=== PATIENT | female | born 1955 | race Caucasian/White ===

== ENCOUNTER 2017-04-22 22:37 | Emergency (ER) | payer BC ==
[2017-04-22 22:45] VITALS: BP 146/69
[2017-04-22] MEDS ORDERED: methylPREDNISolone Sodium Succinate 125 MG/2 ML SDV IVPUSH ONE (22:58)
[2017-04-22] MEDS ORDERED: Famotidine 20 MG/2 ML SDV IVPUSH ONE (22:58)
[2017-04-22] MEDS ORDERED: hydrOXYzine Pamoate 25 MG Cap PO ONE (22:59)
[2017-04-22] MEDS ORDERED: Sodium Chloride 0.9% 10 ML Syringe FLUSH PRN (22:59)
[2017-04-22] MEDS ORDERED: Sodium Chloride 0.9% 2.5 ML Syringe FLUSH PRN (22:59)
[2017-04-22] MEDS ORDERED: Sodium Chloride 0.9% 500 ML IV SCH (23:00)
--- NOTE | 2017-04-22 23:00 | EDM.PDOC ---
ED HPI GENERAL MEDICAL PROBLEM - General Chief Complaint: Allergic Reaction Stated Complaint: POSSIBLE HIVES Time Seen by Provider: 04/22/17 22:53 - History of Present Illness INITIAL COMMENTS - FREE TEXT/NARRATIVE: HISTORY AND PHYSICAL: History of present illness: Patient is a 61-year-old female with a history of hypertension hypercholesterolemia who presents with onset of upper lip swelling and hives to her upper extremities and back that started at 7:30 PM. The patient is on fosinopril/hydrochlorothiazide and has been for many years in a combo drug and has never had problems with it. Patient denies any new foods and ate macaroni for dinner which is not new or different. The patient doesn't feel like her tongue is swollen she is having no trouble swallowing or breathing and has no chest pain. Patient took Benadryl prior to coming here. Review of systems: As per history of present illness and below otherwise all systems reviewed and negative. Past medical history: As per history of present illness and as reviewed below otherwise noncontributory. Surgical history: As per history of present illness and as reviewed below otherwise noncontributory. Social history: No reported history of drug or alcohol abuse. Family history: As per history of present illness and as reviewed below otherwise noncontributory. Physical exam: Gen.: Well-developed well-nourished female who is speaking clearly and easily in the ED and has a visibly swollen upper lip. She is handling her secretions and breathing easily in the ED. Vital signs of the note by me including the slight tachycardia. HEENT: Atraumatic, normocephalic, pupils reactive, negative for conjunctival pallor or scleral icterus, mucous membranes moist, throat clear, neck supple, nontender, trachea midline. The upper lip is grossly swollen but the tongue is normal as is her oropharynx. There is no other facial swelling appreciated. Lungs: Clear to auscultation, breath sounds equal bilaterally, chest nontender. There is no wheezing or stridor Heart: S1S2, regular rhythm and tachycardic rate of my evaluation Abdomen: Soft, nondistended, nontender. Negative for masses or hepatosplenomegaly. NABS Skin: There are urticarial wheals on the upper extremities mostly near the antecubital fossa as well as one on her left back but otherwise the stomach back and legs are spared. Turgor is normal. Genitourinary: Deferred. Rectal: Deferred. Extremities: Atraumatic, negative for cords or calf pain. Neurovascular unremarkable. Neuro: Awake, alert, oriented. Cranial nerves II through XII unremarkable. Cerebellum unremarkable. Motor and sensory unremarkable throughout. Exam nonfocal. Diagnostics: [] Therapeutics: IV fluids, patient took Benadryl prior to coming here, Vistaril Pepcid Solu- Medrol He is feeling improved and the urticaria has resolved almost completely. She still has a swollen lip but feels comfortable with discharge home. I've advised her to take Benadryl [id number] for the next 24 hours as well as the prednisone I'll prescribe her. I also advised her to call Dr. Stiven Rivera tomorrow and to have her fosinopril/hydrochlorothiazide changed and she should not be taking that again. Impression: Acute angioedema secondary to LEAH inhibitor use, urticaria Definitive disposition and diagnosis as appropriate pending reevaluation and review of above. - Related Data Allergies Allergy/AdvReac Type Severity Reaction Status Date / Time No Known Allergies Allergy Verified 04/22/17 22:45 Home Meds: Home Meds Aspirin 1 tab PO DAILY 01/02/15 [History] Escitalopram [Lexapro] 1 tab PO DAILY 01/02/15 [History] Metformin/Pioglitazone [Actoplus Met 15-500 MG] 1 tab PO BID 01/02/15 [History] Pantoprazole [Protonix] 1 tab PO DAILY 01/02/15 [History] Budesonide/Formoterol Fumarate [Symbicort 80-4.5 Mcg Inhaler] 1 puff IH BID [History] Fish Oil/[place]-3 Fatty Acids [Fish Oil 1,000 MG] 1 tab PO DAILY 04/22/17 [ History] Lisinopril/Hydrochlorothiazide [Lisinopril-Hctz 10-12.5 mg Tab] 1 tab PO DAILY 04/22/17 [History] Magnesium 30 mg PO DAILY 04/22/17 [History] atorvaSTATin [Lipitor] 20 mg PO BEDTIME 04/22/17 [History] Past Medical History - Past Health History Medical/Surgical History: Denies Medical/Surgical History HEENT History: Reports: Impaired Vision Other HEENT History: wears glasses Cardiovascular History: Reports: High Cholesterol, Hypertension Respiratory History: Reports: COPD, Sleep Apnea Gastrointestinal History: Reports: None ROCK [employer] History: Reports: , Spontaneous - Infectious Disease History Infectious Disease History: Reports: Chicken Pox - Past Surgical History HEENT Surgical History: Reports: None Cardiovascular Surgical History: Reports: None Respiratory Surgical History: Reports: None GI Surgical History: Reports: Cholecystectomy Social & Family History - Family History Family Medical History: Noncontributory - Tobacco Use Smoking Status *Q: Never Smoker Second Hand Smoke Exposure: No - Caffeine Use Caffeine Use: Reports: Coffee - Recreational Drug Use Recreational Drug Use: No ED ROS ALLERGIC REACTION - Review of Systems Review Of Systems: ROS reveals no pertinent complaints other than HPI. ED EXAM GENERAL NO PERIP PULSE - Physical Exam Exam: See Below (See dictation) Course - Vital Signs Last Recorded V/S: Last Vital Signs Temp 36.4 C 04/22/17 22:41 Pulse 106 H 04/22/17 22:41 Resp 20 04/22/17 22:41 BP 146/69 H 04/22/17 22:41 Pulse Ox 95 04/22/17 22:41 - Orders/Labs/Meds Orders: Active Orders 24 hr Category Date Time Status Sodium Chloride 0.9% [Normal Saline] 500 ml Med 04/22/17 23:00 Active IV STAT Sodium Chloride 0.9% [Saline Flush] Med 04/22/17 22:59 Active 10 ml FLUSH ASDIRECTED PRN Sodium Chloride 0.9% [Saline Flush] Med 04/22/17 22:59 Active 2.5 ml FLUSH ASDIRECTED PRN Saline Lock Insert [OM.PC] Stat Oth 04/22/17 22:58 Ordered Medication Orders Sodium Chloride (Normal Saline) 500 mls @ 999 mls/hr IV STAT ESTEFANI Last Admin: 04/22/17 23:41 Dose: 999 mls/hr Sodium Chloride (Saline Flush) 10 ml FLUSH ASDIRECTED PRN PRN Reason: Keep Vein Open Sodium Chloride (Saline Flush) 2.5 ml FLUSH ASDIRECTED PRN PRN Reason: Keep Vein Open Meds: Medications Generic Name Dose Route Start Last Admin Trade Name Freq PRN Reason Stop Dose Admin Sodium Chloride 500 mls @ 999 mls/hr 04/22/17 23:00 04/22/17 23:41 Normal Saline IV 999 mls/hr STAT ESTEFANI Administration Sodium Chloride 10 ml 04/22/17 22:59 Saline Flush FLUSH ASDIRECTED PRN Keep Vein Open Sodium Chloride 2.5 ml 04/22/17 22:59 Saline Flush FLUSH ASDIRECTED PRN Keep Vein Open Discontinued Medications Generic Name Dose Route Start Last Admin Trade Name Artem PRN Reason Stop Dose Admin Famotidine 20 mg 04/22/17 22:58 04/22/17 23:22 Pepcid IVPUSH 04/22/17 22:59 20 mg ONETIME ONE Administration Hydroxyzine Pamoate 25 mg 04/22/17 22:59 04/22/17 23:32 Vistaril PO 04/22/17 23:00 25 mg ONETIME ONE Administration Methylprednisolone Sodium Succinate 125 mg 04/22/17 22:58 04/22/17 23:22 Solu-Medrol IVPUSH 04/22/17 22:59 125 mg ONETIME ONE Administration Departure - Departure Time of Disposition: 00:16 Disposition: Home, Self-Care 01 Condition: Good Clinical Impression: Urticaria Angioedema Qualifiers: Encounter type: initial encounter Qualified Code(s): T78.3XXA - Angioneurotic edema, initial encounter - Discharge Information Referrals: PCP,None [Primary Care Provider] - Additional Instructions: The following information is given to patients seen in the emergency department who are being discharged to home. This information is to outline your options for follow-up care. We provide all patients seen in our emergency department with a follow-up referral. The need for follow-up, as well as the timing and circumstances, are variable depending upon the specifics of your emergency department visit. If you don't have a primary care physician on staff, we will provide you with a referral. We always advise you to contact your personal physician following an emergency department visit to inform them of the circumstance of the visit and for follow-up with them and/or the need for any referrals to a consulting specialist. The emergency department will also refer you to a specialist when appropriate. This referral assures that you have the opportunity for followup care with a specialist. All of these measure are taken in an effort to provide you with optimal care, which includes your followup. Under all circumstances we always encourage you to contact your private physician who remains a resource for coordinating your care. When calling for followup care, please make the office aware that this follow-up is from your recent emergency room visit. If for any reason you are refused follow-up, please contact the [facility] emergency department at and ask to speak to the emergency department charge nurse. [address] [place], [place] [id number] [facility]- [facility] Medicine and Family [facility] [address] [place] [phone] Rivera tomorrow and have him change her fosinopril/ hydrochlorothiazide to a different drug. Please do not take that medication again. Please take [id number] Benadryl if the milligrams every 6 hours for the next 24 hours continuously and then as needed afterwards. Take prednisone as directed and monitor your blood sugars as the prednisone may increase them temporarily. These expect the lip swelling to subside gradually. Return to ER as needed and as discussed - My Orders Last 24 Hours: My Active Orders 04/22/17 22:58 Saline Lock Insert [OM.PC] Stat 04/22/17 22:59 Sodium Chloride 0.9% [Saline Flush] 10 ml FLUSH ASDIRECTED PRN Sodium Chloride 0.9% [Saline Flush] 2.5 ml FLUSH ASDIRECTED PRN 04/22/17 23:00 Sodium Chloride 0.9% [Normal Saline] 500 ml IV STAT - Assessment/Plan Last 24 Hours: My Active Orders 04/22/17 22:58 Saline Lock Insert [OM.PC] Stat 04/22/17 22:59 Sodium Chloride 0.9% [Saline Flush] 10 ml FLUSH ASDIRECTED PRN Sodium Chloride 0.9% [Saline Flush] 2.5 ml FLUSH ASDIRECTED PRN 04/22/17 23:00 Sodium Chloride 0.9% [Normal Saline] 500 ml IV STAT
== END 2017-04-23 00:30 | disposition home or self-care (01) ==
LOC: MW.ED 22:37
DX: T78.3XXA Angioneurotic edema, initial encounter (principal); T44.5X5A Adverse effect of predominantly beta-adrenoreceptor agonists, initial encounter; E78.00 Pure hypercholesterolemia, unspecified; I10 Essential (primary) hypertension; Z79.84 Long term (current) use of oral hypoglycemic drugs; Z79.899 Other long term (current) drug therapy; Z79.82 Long term (current) use of aspirin
CPT/HCPCS: 96361; 96374; 96375; 99283; A9270; J2930; J7040; 99284

== ENCOUNTER 2017-04-24 19:58 | Emergency (ER) | payer BC ==
[2017-04-24] MEDS ORDERED: methylPREDNISolone Sodium Succinate 125 MG/2 ML SDV IM ONE (20:19)
[2017-04-24] MEDS ORDERED: hydrOXYzine Pamoate 25 MG Cap PO ONE (20:19)
--- NOTE | 2017-04-24 20:24 | EDM.PDOC ---
ED HPI GENERAL MEDICAL PROBLEM - General Chief Complaint: Allergic Reaction Stated Complaint: HIVES Time Seen by Provider: 04/24/17 20:15 - History of Present Illness INITIAL COMMENTS - FREE TEXT/NARRATIVE: HISTORY AND PHYSICAL: History of present illness: The patient is a 61-year-old female with a history of hypertension and hypercholesterolemia who follows with Dr. Adriana iRvera and was seen here 2 days ago for angioedema secondary to her LEAH inhibitor use which included swelling of her upper lip and some patchy urticaria on her upper extremities and left back. Patient was treated with IV steroids Pepcid Vistaril, she had taken Benadryl prior to coming here. Patient says that her lip swelling was completely resolved as of yesterday evening is having no hives or rash. Today about 12 noon she started feeling itchy and she broke out in a rash several hours ago and took Benadryl 2-1/2 hours ago. She says she was doing really well from the hives standpoint and this is a new recurrence. She doesn't know of anything that could've triggered it that was new or different. She has not been taking her blood pressure medicine, LEAH inhibitor, and has appointment tomorrow with Dr. Stiven Rivera to replace that drug and for reevaluation of her symptoms. She has no shortness of breath no lip or tongue swelling no chest pain no nausea no vomiting and no other systemic complaints Review of systems: As per history of present illness and below otherwise all systems reviewed and negative. Past medical history: As per history of present illness and as reviewed below otherwise noncontributory. Surgical history: As per history of present illness and as reviewed below otherwise noncontributory. Social history: No reported history of drug or alcohol abuse. Family history: As per history of present illness and as reviewed below otherwise noncontributory. Physical exam: Gen.: Well-developed overweight female who is nontoxic and speaking clearly and easily in the ED. Vital signs have been reviewed by me. HEENT: Atraumatic, normocephalic, pupils reactive, negative for conjunctival pallor or scleral icterus, mucous membranes moist, throat clear, neck supple, nontender, trachea midline. There is no lip tongue or oropharyngeal no facial swelling Lungs: Clear to auscultation, breath sounds equal bilaterally, chest nontender. No wheezing or stridor Heart: S1S2, regular rate and rhythm no overt murmurs Abdomen: Soft, nondistended, nontender. NABS Pelvis: Deferred Genitourinary: Deferred. Rectal: Deferred. Extremities: Atraumatic, negative for cords or calf pain. Neurovascular unremarkable. Neuro: Awake, alert, oriented. Cranial nerves II through XII unremarkable. Cerebellum unremarkable. Motor and sensory unremarkable throughout. Exam nonfocal. Skin: There is diffuse urticaria seen on the trunk extremities but spares the face. Patient is itching when I'm in the room. Turgor is normal Diagnostics: [] Therapeutics: Solu-Medrol IM Vistaril by mouth I advised the patient that if the symptoms persist she may need to be seen by dermatology start first with her appointment tomorrow with Dr. Rivera in the clinic. I've advised her to stop taking Benadryl and to start Vistaril which I prescribed. I advised her to continue the prednisone she has. Impression: Recurrent urticaria with history of angioedema and urticaria Definitive disposition and diagnosis as appropriate pending reevaluation and review of above. - Related Data Allergies Allergy/AdvReac Type Severity Reaction Status Date / Time No Known Allergies Allergy Verified 04/24/17 20:13 Home Meds: Home Meds Aspirin 1 tab PO DAILY 01/02/15 [History] Escitalopram [Lexapro] 1 tab PO DAILY 01/02/15 [History] Metformin/Pioglitazone [Actoplus Met 15-500 MG] 1 tab PO BID 01/02/15 [History] Pantoprazole [Protonix] 1 tab PO DAILY 01/02/15 [History] Budesonide/Formoterol Fumarate [Symbicort 80-4.5 Mcg Inhaler] 1 puff IH BID [History] Fish Oil/[place]-3 Fatty Acids [Fish Oil 1,000 MG] 1 tab PO DAILY 04/22/17 [ History] Magnesium 30 mg PO DAILY 04/22/17 [History] atorvaSTATin [Lipitor] 20 mg PO BEDTIME 04/22/17 [History] Past Medical History - Past Health History Medical/Surgical History: Denies Medical/Surgical History HEENT History: Reports: Impaired Vision Other HEENT History: wears glasses Cardiovascular History: Reports: High Cholesterol, Hypertension Respiratory History: Reports: COPD, Sleep Apnea Gastrointestinal History: Reports: None [employer] History: Reports: , Spontaneous Psychiatric History: Reports: Anxiety - Infectious Disease History Infectious Disease History: Reports: Chicken Pox - Past Surgical History HEENT Surgical History: Reports: None Cardiovascular Surgical History: Reports: None Respiratory Surgical History: Reports: None GI Surgical History: Reports: Cholecystectomy Social & Family History - Family History Family Medical History: Noncontributory - Tobacco Use Smoking Status *Q: Never Smoker Second Hand Smoke Exposure: No - Caffeine Use Caffeine Use: Reports: Coffee, Soda - Recreational Drug Use Recreational Drug Use: No ED ROS ALLERGIC REACTION - Review of Systems Review Of Systems: ROS reveals no pertinent complaints other than HPI. ED EXAM GENERAL NO PERIP PULSE - Physical Exam Exam: See Below (See dictation) Course - Vital Signs Last Recorded V/S: Last Vital Signs Temp 36.1 C 04/24/17 20:09 Pulse 90 04/24/17 20:09 Resp 20 04/24/17 20:09 BP 147/67 H 04/24/17 20:09 Pulse Ox 96 04/24/17 20:09 - Orders/Labs/Meds Orders: Active Orders 24 hr Category Date Time Status hydrOXYzine Pamoate [Vistaril] Med 04/24/17 20:19 Once 25 mg PO ONETIME ONE methylPREDNISolone Sod Succ [Solu-MEDROL] Med 04/24/17 20:19 Once 125 mg IM ONETIME ONE Departure - Departure Time of Disposition: 20:23 Disposition: Home, Self-Care 01 Condition: Good Clinical Impression: Recurrent urticaria - Discharge Information Referrals: Stiven Rivera MD [Primary Care Provider] - Additional Instructions: The following information is given to patients seen in the emergency department who are being discharged to home. This information is to outline your options for follow-up care. We provide all patients seen in our emergency department with a follow-up referral. The need for follow-up, as well as the timing and circumstances, are variable depending upon the specifics of your emergency department visit. If you don't have a primary care physician on staff, we will provide you with a referral. We always advise you to contact your personal physician following an emergency department visit to inform them of the circumstance of the visit and for follow-up with them and/or the need for any referrals to a consulting specialist. The emergency department will also refer you to a specialist when appropriate. This referral assures that you have the opportunity for followup care with a specialist. All of these measure are taken in an effort to provide you with optimal care, which includes your followup. Under all circumstances we always encourage you to contact your private physician who remains a resource for coordinating your care. When calling for followup care, please make the office aware that this follow-up is from your recent emergency room visit. If for any reason you are refused follow-up, please contact the [facility] emergency department at and ask to speak to the emergency department charge nurse. [address] [place] [address] Please stop taking the Benadryl and take the Vistaril you had been prescribed. Continue taking the prednisone with your next dose being tomorrow. The prednisone were prescribed 2 days ago while you're in the ER. Please keep your appointment tomorrow with Dr. Stiven Rivera and return to ER as needed and as discussed. - My Orders Last 24 Hours: My Active Orders 04/24/17 20:19 hydrOXYzine Pamoate [Vistaril] 25 mg PO ONETIME ONE methylPREDNISolone Sod Succ [Solu-MEDROL] 125 mg IM ONETIME ONE - Assessment/Plan Last 24 Hours: My Active Orders 04/24/17 20:19 hydrOXYzine Pamoate [Vistaril] 25 mg PO ONETIME ONE methylPREDNISolone Sod Succ [Solu-MEDROL] 125 mg IM ONETIME ONE
[2017-04-24 20:55] VITALS: BP 133/60
== END 2017-04-24 21:07 | disposition home or self-care (01) ==
LOC: MW.ED 19:58
DX: L50.8 Other urticaria (principal); I10 Essential (primary) hypertension; Z79.82 Long term (current) use of aspirin; Z79.84 Long term (current) use of oral hypoglycemic drugs; Z79.899 Other long term (current) drug therapy
CPT/HCPCS: 96372; 99283; A9270; J2930

== ENCOUNTER 2019-01-03 19:55 | Observation (INO) | payer BC ==
--- NOTE | 2019-01-03 20:08 | EDM.PDOC ---
ED HPI GENERAL MEDICAL PROBLEM - General Chief Complaint: Lower Extremity Injury/Pain Stated Complaint: PT HURT LT TOE Time Seen by Provider: 01/03/19 20:00 Source of Information: Reports: Patient History Limitations: Reports: No Limitations - History of Present Illness INITIAL COMMENTS - FREE TEXT/NARRATIVE: HISTORY AND PHYSICAL: History of present illness: Patient is a 63-year-old female who presents to the emergency room with complaints of redness and swelling left second toe since Saturday. She states she was walking without shoes and felt something sharp poke the bottom of her foot. She was evaluated in the walk-in clinic on 12/31/2018 and placed on a Medrol Dosepak and clindamycin 3 times daily. She states she has been taking the medications but not seeing any improvement. The area is now erythematous and has a blister to the medial and lateral aspects of the toe. Patient is a type II diabetic. Denies any history of neuropathy. Patient denies any fever, chills, headache, change in vision, syncope or near syncope. Denies any chest pain, back pain, shortness of breath or cough. Denies any abdominal pain, nausea, vomiting, diarrhea, constipation or dysuria. Has not noted any blood in urine or stool. Patient has been eating and drinking appropriately. Review of systems: As per history of present illness and below otherwise all systems reviewed and negative. Past medical history: As per history of present illness and as reviewed below otherwise noncontributory. Surgical history: As per history of present illness and as reviewed below otherwise noncontributory. Social history: See social history for further information Family history: As per history of present illness and as reviewed below otherwise noncontributory. Physical exam: General: Well-developed and well-nourished 63-year-old female. Alert and oriented. Nontoxic appearing and in no acute distress. HEENT: Atraumatic, normocephalic, pupils equal and reactive bilaterally, negative for conjunctival pallor or scleral icterus, mucous membranes moist, TMs normal bilaterally, throat clear, neck supple, nontender, trachea midline. No drooling or trismus noted. No meningeal signs. No hot potato voice noted. Lungs: Clear to auscultation, breath sounds equal bilaterally, chest nontender. Heart: S1S2, regular rate and rhythm without overt murmur Abdomen: Soft, nondistended, obese, nontender. Negative for masses or hepatosplenomegaly. Negative for costovertebral tenderness.. Skin: Erythema of the left second toe going into the upper third portion of the anterior foot. There is a blister to the medial and lateral aspect of the toe along with a small superficial blister noted to the anterior aspect of the third toe. Intact, warm, dry. No lesions or rashes noted. Extremities: Moves all extremities per self without difficulty or deficits, negative for cords or calf pain. Neurovascular unremarkable. Neuro: Awake, alert, oriented. Cranial nerves II through XII unremarkable. Cerebellum unremarkable. Motor and sensory unremarkable throughout. Exam nonfocal. Notes: Patient stated that the initial injury appeared to be a small puncture wound to the bottom of her foot. Was placed on the antibiotics and over the past 4 days she has progressively gotten more painful, erythematous and soft tissue swelling. Nursing staff did outline the cellulitis with a surgical marker. We discussed outpatient therapy versus inpatient therapy. Dr. Aguilar was consulted, he is agreeable to keeping her for observation. Requested vancomycin be started. Patient is aware and agreeable to plan of care. Diagnostics: CBC, CMP, x-ray, blood cultures Therapeutics: Vancomycin Impression: Cellulitis, left foot Diabetes, Type II Plan: Observation admission Definitive disposition and diagnosis as appropriate pending reevaluation and review of above. - Related Data Allergies Allergy/AdvReac Type Severity Reaction Status Date / Time No Known Allergies Allergy Verified 04/24/17 20:13 Home Meds: Home Meds Aspirin 1 tab PO DAILY 01/02/15 [History] Escitalopram [Lexapro] 1 tab PO DAILY 01/02/15 [History] Metformin/Pioglitazone [Actoplus Met 15-500 MG] 1 tab PO BID 01/02/15 [History] Pantoprazole [Protonix] 1 tab PO DAILY 01/02/15 [History] Budesonide/Formoterol Fumarate [Symbicort 80-4.5 Mcg Inhaler] 1 puff IH BID [History] Fish Oil/[place]-3 Fatty Acids [Fish Oil 1,000 MG] 1 tab PO DAILY 04/22/17 [ History] Magnesium 30 mg PO DAILY 04/22/17 [History] atorvaSTATin [Lipitor] 20 mg PO BEDTIME 04/22/17 [History] Clindamycin HCl 300 mg PO TID 01/03/19 [History] methylPREDNISolone [Medrol] 4 mg PO DAILY 01/03/19 [History] Past Medical History - Past Health History Medical/Surgical History: Denies Medical/Surgical History HEENT History: Reports: Impaired Vision Other HEENT History: wears glasses Cardiovascular History: Reports: High Cholesterol, Hypertension Respiratory History: Reports: COPD, Sleep Apnea Gastrointestinal History: Reports: None 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 ED EXAM, GENERAL - Physical Exam Exam: See Below (See dictation) Course - Vital Signs Last Recorded V/S: Last Vital Signs Temp 96.7 F 01/03/19 20:14 Pulse 79 01/03/19 20:14 Resp 18 01/03/19 20:14 BP 135/61 01/03/19 20:14 Pulse Ox 93 L 01/03/19 20:14 - Orders/Labs/Meds Orders: Active Orders 24 hr Category Date Time Status Admission Status [Patient Status] [ADT] Stat ADT 01/03/19 21:22 Ordered Foot Comp Min 3V Lt [CR] Stat Exams 01/03/19 20:26 Taken CULTURE BLOOD [BC] Stat Lab 01/03/19 21:22 Ordered CULTURE BLOOD [BC] Stat Lab 01/03/19 21:22 Ordered Vancomycin 1 gm Med 01/03/19 21:22 Ordered Sodium Chloride 0.9% [Normal Saline] 250 ml IV ONETIME Blood Culture x2 Reflex Set [OM.PC] Stat Oth 01/03/19 21:22 Ordered Medication Orders Vancomycin HCl 1 gm/ Sodium (Chloride) 250 mls @ 166 mls/hr IV ONETIME ONE Stop: 01/03/19 22:52 Labs: Laboratory Tests 01/03/19 01/03/19 Range/Units 20:34 20:34 WBC 12.27 H (4.0-11.0) K/uL RBC 4.13 L (4.30-5.90) M/uL Hgb 10.6 L (12.0-16.0) g/dL Hct 34.4 L (36.0-46.0) % MCV 83.3 (80.0-98.0) fL MCH 25.7 L (27.0-32.0) pg MCHC 30.8 L (31.0-37.0) g/dL RDW Std Deviation 46.5 (28.0-62.0) fl RDW Coeff of William 15 (11.0-15.0) % Plt Count 313 (150-400) K/uL MPV 9.50 (7.40-12.00) fL Neut % (Auto) 79.9 (48.0-80.0) % Lymph % (Auto) 12.9 L (16.0-40.0) % Coleman % (Auto) 5.5 (0.0-15.0) % Eos % (Auto) 1.5 (0.0-7.0) % Baso % (Auto) 0.2 (0.0-1.5) % Neut # (Auto) 9.8 H (1.4-5.7) K/uL Lymph # (Auto) 1.6 (0.6-2.4) K/uL Coleman # (Auto) 0.7 (0.0-0.8) K/uL Eos # (Auto) 0.2 (0.0-0.7) K/uL Baso # (Auto) 0.0 (0.0-0.1) K/uL Nucleated RBC % 0.0 /100WBC Nucleated RBCs # 0 K/uL Sodium 139 (136-145) mmol/L Potassium 4.3 (3.5-5.1) mmol/L Chloride 102 (98-107) mmol/L Carbon Dioxide 26.5 (21.0-32.0) mmol/L BUN 38 H (7.0-18.0) mg/dL Creatinine 1.7 H (0.6-1.0) mg/dL Est Cr Clr Drug Dosing 26.44 mL/min Estimated GFR (MDRD) 30.3 ml/min Glucose 204 H (74-106) mg/dL Calcium 9.2 (8.5-10.1) mg/dL Total Bilirubin 0.2 (0.2-1.0) mg/dL AST 19 (15-37) IU/L ALT 29 (14-63) IU/L Alkaline Phosphatase 92 (46-116) U/L Total Protein 7.2 (6.4-8.2) g/dL Albumin 3.3 L (3.4-5.0) g/dL Globulin 3.9 (2.6-4.0) g/dL Albumin/Globulin Ratio 0.9 (0.9-1.6) Meds: Medications Generic Name Dose Route Start Last Admin Trade Name Artem PRN Reason Stop Dose Admin Vancomycin HCl 1 gm/ Sodium 250 mls @ 166 mls/hr 01/03/19 21:22 Chloride IV 01/03/19 22:52 ONETIME ONE Departure - Departure Time of Disposition: 21:26 Disposition: Refer to Observation Clinical Impression: History of diabetes mellitus, type II Cellulitis Qualifiers: Site of cellulitis: extremity Site of cellulitis of extremity: lower extremity Laterality: left Qualified Code(s): L03.116 - Cellulitis of left lower limb - Discharge Information Referrals: Stiven Rivera MD [Primary Care Provider] - Forms: ED Department Discharge - My Orders Last 24 Hours: My Active Orders 01/03/19 20:26 Foot Comp Min 3V Lt [CR] Stat 01/03/19 21:22 Admission Status [Patient Status] [ADT] Stat CULTURE BLOOD [BC] Stat CULTURE BLOOD [BC] Stat Vancomycin 1 gm Sodium Chloride 0.9% [Normal Saline] 250 ml IV ONETIME Blood Culture x2 Reflex Set [OM.PC] Stat - Assessment/Plan Last 24 Hours: My Active Orders 01/03/19 20:26 Foot Comp Min 3V Lt [CR] Stat 01/03/19 21:22 Admission Status [Patient Status] [ADT] Stat CULTURE BLOOD [BC] Stat CULTURE BLOOD [BC] Stat Vancomycin 1 gm Sodium Chloride 0.9% [Normal Saline] 250 ml IV ONETIME Blood Culture x2 Reflex Set [OM.PC] Stat
[2019-01-03 21:07] LABS: CARBON DIOXIDE,CO2 26.5 mmol/L (21.0-32.0); POTASSIUM,K 4.3 mmol/L (3.5-5.1)
[2019-01-03] MEDS ORDERED: Vancomycin 1 GM SDV ONE (22:03)
[2019-01-03] MEDS ORDERED: Sodium Chloride 0.9% 250 ML ONE (22:04)
--- NOTE | 2019-01-03 22:12 | CR ---
INDICATION: Injury. Swelling. TECHNIQUE: Three views left foot. FINDINGS: Moderately prominent calcaneal spurring. Moderate degenerative arthritis left foot. Mild degenerative arthritis left ankle. Mild soft tissue swelling left foot dorsally. Small ossific density adjacent to the cuboid on 1 of the views is of indeterminate age but on the other view appears more chronic. Suggest clinical correlation for pain in this location. Small accessory navicular bone. Small lucencies involving the proximal phalanges of the left 2nd through 5th toes benign. Remainder negative. Dictated by Nolberto Balderrama MD @ Jan 03 2019 10:09PM Signed by Dr. Nolberto Balderrama @ Jan 03 2019 10:11PM
[2019-01-04 07:00] LABS: CARBON DIOXIDE,CO2 29.5 mmol/L (21.0-32.0); POTASSIUM,K 3.6 mmol/L (3.5-5.1)
--- NOTE | 2019-01-04 07:42 | PCM.HP ---
H&P History of Present Illness - General Date of Service: 01/04/19 Admit Problem/Dx: Admission Diagnosis/Problem Admission Diagnosis/Problem Cellulitis Source of Information: Patient History Limitations: Reports: No Limitations - History of Present Illness Initial Comments - Free Text/Narative: The patient is a 63-year-old lady who had presented to the emergency department primarily out of concern for infection of her left foot. This was a injury that she has sustained on her left second toe. The patient had presented to an urgent care center and she was placed on clindamycin and methylprednisolone. The patient says is getting worse. She has denied any fever or chills. The patient is also a type II diabetic. The patient also has denied any dizziness or lightheadedness. She's had no syncope. She also has denied any shortness of breath. The patient has been at her usual state of health. Onset of Symptoms: Reports: Gradual Duration of Symptoms: Reports: Day(s): Location: Reports: Lower Extremity, Left (Left forefoot) Quality: Reports: Ache, Stabbing Severity: Moderate Improves with: Reports: Medication Worsens with: Reports: Movement Context: Reports: Trauma (Stepped on something) Associated Symptoms: Reports: No Other Symptoms - Related Data Allergies/Adverse Reactions: Allergies Allergy/AdvReac Type Severity Reaction Status Date / Time No Known Allergies Allergy Verified 01/03/19 22:29 Home Medications: Home Meds Aspirin 1 tab PO DAILY 01/02/15 [History] Escitalopram [Lexapro] 1 tab PO DAILY 01/02/15 [History] Metformin/Pioglitazone [Actoplus Met 15-500 MG] 1 tab PO BID 01/02/15 [History] Pantoprazole [Protonix] 1 tab PO DAILY 01/02/15 [History] Budesonide/Formoterol Fumarate [Symbicort 80-4.5 Mcg Inhaler] 1 puff IH BID [History] Fish Oil/[place]-3 Fatty Acids [Fish Oil 1,000 MG] 1 tab PO DAILY 04/22/17 [ History] Magnesium 30 mg PO DAILY 04/22/17 [History] atorvaSTATin [Lipitor] 20 mg PO BEDTIME 04/22/17 [History] Clindamycin HCl 300 mg PO TID 01/03/19 [History] Triamterene/Hydrochlorothiazid [Triamterene-HCTZ 37.5-25 MG] 1 each PO DAILY [History] methylPREDNISolone [Medrol] 4 mg PO DAILY 01/03/19 [History] Past Medical History - Past Health History Medical/Surgical History: Denies Medical/Surgical History HEENT History: Reports: Impaired Vision Other HEENT History: wears glasses Cardiovascular History: Reports: High Cholesterol, Hypertension Respiratory History: Reports: COPD, Sleep Apnea Gastrointestinal History: Reports: None Genitourinary History: Reports: None 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: , 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 Musculoskeletal History: Reports: None Neurological History: Reports: None Psychiatric History: Reports: Anxiety Endocrine/Metabolic History: Reports: Diabetes, Type II, Obesity/BMI 30+ Hematologic History: Reports: None - Infectious Disease History Infectious Disease History: Reports: Chicken Pox, Mumps - Past Surgical History HEENT Surgical History: Reports: None Cardiovascular Surgical History: Reports: None Respiratory Surgical History: Reports: None GI Surgical History: Reports: Cholecystectomy Social & Family History - Family History Family Medical History: Noncontributory - Tobacco Use Smoking Status *Q: Never Smoker Second Hand Smoke Exposure: No - Caffeine Use Caffeine Use: Reports: Coffee - Recreational Drug Use Recreational Drug Use: No H&P Review of Systems - Review of Systems: Review Of Systems: See Below General: Reports: No Symptoms HEENT: Reports: No Symptoms Pulmonary: Reports: No Symptoms Cardiovascular: Reports: No Symptoms Gastrointestinal: Reports: No Symptoms Genitourinary: Reports: No Symptoms Musculoskeletal: Reports: No Symptoms Skin: Reports: Wound, Other (Infection and blister left second toe) Psychiatric: Reports: No Symptoms Neurological: Reports: No Symptoms Hematologic/Lymphatic: Reports: No Symptoms Immunologic: Reports: No Symptoms Exam - Exam Exam: See Below - Vital Signs Vital Signs: Last Vital Signs Temp 36.3 C 01/04/19 04:00 Pulse 75 01/04/19 04:00 Resp 18 01/04/19 04:00 BP 110/62 01/04/19 04:00 Pulse Ox 95 01/04/19 04:00 Weight: 142.201 kg - Exam Quality Assessment: No: Supplemental Oxygen General: Alert (Morbidly obese), Oriented, Cooperative HEENT: Conjunctiva Clear, EACs Clear, EOMI, Mucosa Moist & [place], Pupils Equal, PERRLA Neck: Supple, Trachea Midline, Other (Very thick neck) Lungs: Clear to Auscultation, Normal Respiratory Effort Cardiovascular: Regular Rate, Regular Rhythm GI/Abdominal Exam: Normal Bowel Sounds, Soft, Other (Unable to palpate effectively secondary to patient's body habitus) Back Exam: Normal Inspection, Full Range of Motion Extremities: Normal Inspection, Normal Range of Motion, No Pedal Edema Skin: Other (Area cellulitis left forefoot, blisters on toe) Neurological: Cranial Nerves Intact Neuro Extensive - Mental Status: Alert, Oriented x3 Psychiatric: Alert, Normal Affect, Normal Mood - Patient Data Lab Results Last 24 hrs: Laboratory Results - last 24 hr 01/03/19 01/03/19 01/04/19 Range/Units 20:34 20:34 06:19 WBC 12.27 H 12.31 H (4.0-11.0) K/uL RBC 4.13 L 3.96 L (4.30-5.90) M/uL Hgb 10.6 L 10.2 L (12.0-16.0) g/dL Hct 34.4 L 33.1 L (36.0-46.0) % MCV 83.3 83.6 (80.0-98.0) fL MCH 25.7 L 25.8 L (27.0-32.0) pg MCHC 30.8 L 30.8 L (31.0-37.0) g/dL RDW Std Deviation 46.5 46.5 (28.0-62.0) fl RDW Coeff of William 15 15 (11.0-15.0) % Plt Count 313 269 (150-400) K/uL MPV 9.50 9.40 (7.40-12.00) fL Neut % (Auto) 79.9 57.6 (48.0-80.0) % Lymph % (Auto) 12.9 L 29.6 (16.0-40.0) % [place] % (Auto) 5.5 7.0 (0.0-15.0) % Eos % (Auto) 1.5 5.6 (0.0-7.0) % Baso % (Auto) 0.2 0.2 (0.0-1.5) % Neut # (Auto) 9.8 H 7.1 H (1.4-5.7) K/uL Lymph # (Auto) 1.6 3.6 H (0.6-2.4) K/uL [place] # (Auto) 0.7 0.9 H (0.0-0.8) K/uL Eos # (Auto) 0.2 0.7 (0.0-0.7) K/uL Baso # (Auto) 0.0 0.0 (0.0-0.1) K/uL Nucleated RBC % 0.0 0.0 /100WBC Nucleated RBCs # 0 0 K/uL Sodium 139 (136-145) mmol/L Potassium 4.3 (3.5-5.1) mmol/L Chloride 102 (98-107) mmol/L Carbon Dioxide 26.5 (21.0-32.0) mmol/L BUN 38 H (7.0-18.0) mg/dL Creatinine 1.7 H (0.6-1.0) mg/dL Est Cr Clr Drug Dosing 26.44 mL/min Estimated GFR (MDRD) 30.3 ml/min Glucose 204 H (74-106) mg/dL Calcium 9.2 (8.5-10.1) mg/dL Total Bilirubin 0.2 (0.2-1.0) mg/dL AST 19 (15-37) IU/L ALT 29 (14-63) IU/L Alkaline Phosphatase 92 (46-116) U/L Total Protein 7.2 (6.4-8.2) g/dL Albumin 3.3 L (3.4-5.0) g/dL Globulin 3.9 (2.6-4.0) g/dL Albumin/Globulin Ratio 0.9 (0.9-1.6) 01/04/19 Range/Units 06:19 WBC (4.0-11.0) K/uL RBC (4.30-5.90) M/uL Hgb (12.0-16.0) g/dL Hct (36.0-46.0) % MCV (80.0-98.0) fL MCH (27.0-32.0) pg MCHC (31.0-37.0) g/dL RDW Std Deviation (28.0-62.0) fl RDW Coeff of William (11.0-15.0) % Plt Count (150-400) K/uL MPV (7.40-12.00) fL Neut % (Auto) (48.0-80.0) % Lymph % (Auto) (16.0-40.0) % [place] % (Auto) (0.0-15.0) % Eos % (Auto) (0.0-7.0) % Baso % (Auto) (0.0-1.5) % Neut # (Auto) (1.4-5.7) K/uL Lymph # (Auto) (0.6-2.4) K/uL [place] # (Auto) (0.0-0.8) K/uL Eos # (Auto) (0.0-0.7) K/uL Baso # (Auto) (0.0-0.1) K/uL Nucleated RBC % /100WBC Nucleated RBCs # K/uL Sodium 142 (136-145) mmol/L Potassium 3.6 (3.5-5.1) mmol/L Chloride 104 (98-107) mmol/L Carbon Dioxide 29.5 (21.0-32.0) mmol/L BUN 36 H (7.0-18.0) mg/dL Creatinine 1.7 H (0.6-1.0) mg/dL Est Cr Clr Drug Dosing 26.44 mL/min Estimated GFR (MDRD) 30.3 ml/min Glucose 116 H (74-106) mg/dL Calcium 8.9 (8.5-10.1) mg/dL Total Bilirubin (0.2-1.0) mg/dL AST (15-37) IU/L ALT (14-63) IU/L Alkaline Phosphatase (46-116) U/L Total Protein (6.4-8.2) g/dL Albumin (3.4-5.0) g/dL Globulin (2.6-4.0) g/dL Albumin/Globulin Ratio (0.9-1.6) Result Diagrams: 01/04/19 06:19 01/04/19 06:19 - Problem List (1) Cellulitis SNOMED Code(s): 921392311 ICD Code: L03.90 - CELLULITIS, UNSPECIFIED Status: Acute Priority: High Current Visit: Yes Qualifiers: Site of cellulitis: extremity Site of cellulitis of extremity: lower extremity Laterality: left Qualified Code(s): L03.116 - Cellulitis of left lower limb (2) Diabetes mellitus type 2 in obese SNOMED Code(s): 02289829 ICD Code: E11.69 - TYPE 2 DIABETES MELLITUS WITH OTHER SPECIFIED COMPLICATION ; E66.9 - OBESITY, UNSPECIFIED Status: Chronic Priority: High Current Visit: Yes (3) Hypertension SNOMED Code(s): 12264119 ICD Code: I10 - ESSENTIAL (PRIMARY) HYPERTENSION Status: Chronic Priority : High Current Visit: Yes Qualifiers: Hypertension type: essential hypertension Qualified Code(s): I10 - Essential (primary) hypertension (4) Morbid obesity with BMI of 50.0-59.9, adult SNOMED Code(s): 019513065, 92153055270770 ICD Code: E66.01 - MORBID (SEVERE) OBESITY DUE TO EXCESS CALORIES; Z68.43 - BODY MASS INDEX (BMI) 50-59.9, ADULT Status: Chronic Priority: High Current Visit: Yes Problem List Initiated/Reviewed/Updated: Yes Orders Last 24hrs: Active Orders 24 hr Category Date Time Status Admission Status [Patient Status] [ADT] Stat ADT 01/03/19 21:22 Active Blood Glucose Check, Bedside [RC] TIDAC Care 01/04/19 07:00 Active [employer] Diet [DIET] Diet 01/04/19 Breakfast Active CULTURE BLOOD [BC] Stat Lab 01/03/19 21:30 Received CULTURE BLOOD [BC] Stat Lab 01/03/19 21:39 Received VANCOMYCIN TROUGH [CHEM] Timed Lab 01/07/19 20:30 Ordered Insulin Aspart [NovoLOG] Med 01/04/19 07:30 Active See Protocol [facility] Pharmacy to Dose - Vancomycin Med 01/03/19 22:45 Pending 1 dose .XX ASDIRECTED Sodium Chloride 0.9% [Normal Saline] 1,000 ml Med 01/03/19 22:45 Active IV ASDIRECTED Vancomycin 1.25 gm Med 01/04/19 21:30 Active Sodium Chloride 0.9% [Normal Saline] 250 ml IV Q24H Blood Culture x2 Reflex Set [OM.PC] Stat Oth 01/03/19 21:22 Ordered Medication Orders Sodium Chloride (Normal Saline) 1,000 mls @ 75 mls/hr IV ASDIRECTED ESTEFANI Vancomycin HCl 1.25 gm/ Sodium (Chloride) 250 mls @ 166.667 mls/hr IV Q24H [facility] Insulin Aspart (Novolog) 0 unit SUBCUT TIDAC [facility]; Protocol Vancomycin HCl (Pharmacy To Dose - Vancomycin) 1 dose .XX ASDIRECTED [facility] Assessment/Plan Comment:: The patient is a 63-year-old lady who had a small puncture wound to her left foot which had resulted in subsequent infection and had been partially treated with the use of clindamycin. Because of this the patient was admitted and she was also placed on vancomycin with pharmacy dosing as well as Zosyn for pseudomonal coverage. The patient will also be kept on appropriate ADA diet. I' ve ordered insulin and Accu-Cheks before meals and at bedtime.
[2019-01-04] MEDS: Insulin Aspart 100 Units/ML 3 ML Pen SUBCUT SCH ×3 (07:50→18:40)
[2019-01-04] MEDS: Magnesium Oxide 400 MG Tab PO SCH (08:54)
[2019-01-04] MEDS: Aspirin 81 MG Tab.Chew PO SCH (08:54)
[2019-01-04] MEDS: Hydrochlorothiazide/Triamterene 25-37.5 Tab PO SCH (08:55)
[2019-01-04] MEDS: Pantoprazole 40 MG Tab.CR PO SCH (08:55)
[2019-01-04] MEDS: Escitalopram 10 MG Tab PO SCH (08:55)
[2019-01-04] MEDS: BUDESONIDE INH SCH ×2 (09:05→20:39)
[2019-01-04] MEDS: Sodium Chloride 0.9% 1,000 ML IV SCH ×2 (09:05→22:52)
[2019-01-04] MEDS: FORMOTEROL INH SCH ×2 (09:05→20:39)
[2019-01-04] MEDS ORDERED: Piperacillin/Tazobactam 2.25 GM in Sodium Chloride 0.9% 50 ML IV SCH (10:00)
[2019-01-04] MEDS: Piperacillin/Tazobactam 2.25 GM in Sodium Chloride 0.9% 50 ML IV SCH ×3 (10:34→22:20)
[2019-01-04] MEDS: Heparin Sodium 5,000 Units/ML Vial SUBCUT SCH ×2 (13:49→20:39)
[2019-01-04] MEDS ORDERED: atorvaSTATin 20 MG Tab PO SCH (21:00)
[2019-01-05] MEDS: Heparin Sodium 5,000 Units/ML Vial SUBCUT SCH (04:54)
[2019-01-05] MEDS: Piperacillin/Tazobactam 2.25 GM in Sodium Chloride 0.9% 50 ML IV SCH ×2 (04:55→09:51)
[2019-01-05 06:46] LABS: CARBON DIOXIDE,CO2 28.5 mmol/L (21.0-32.0); POTASSIUM,K 4.1 mmol/L (3.5-5.1)
[2019-01-05 06:55] LABS: HEMOGLOBIN A1C 7.7 % (4.5-6.2)
[2019-01-05] MEDS: Insulin Aspart 100 Units/ML 3 ML Pen SUBCUT SCH (07:13)
[2019-01-05 07:47] VITALS: BP 147/79; PULSE 80
[2019-01-05] MEDS: Pantoprazole 40 MG Tab.CR PO SCH (08:34)
[2019-01-05] MEDS: Aspirin 81 MG Tab.Chew PO SCH (08:34)
[2019-01-05] MEDS: Hydrochlorothiazide/Triamterene 25-37.5 Tab PO SCH (08:34)
[2019-01-05] MEDS: Escitalopram 10 MG Tab PO SCH (08:34)
[2019-01-05] MEDS: Magnesium Oxide 400 MG Tab PO SCH (08:34)
[2019-01-05] MEDS: BUDESONIDE INH SCH (08:37)
[2019-01-05] MEDS: FORMOTEROL INH SCH (08:37)
--- NOTE | 2019-01-05 09:48 | PCM.DCSUM1 ---
<Radha Milan M - Last Filed: 01/05/19 09:52> Discharge Summary - Hospital Course Brief History: This 63-year-old female with pmh of DM Type 2 who had presented to the emergency department primarily out of concern for infection of her left foot. This was a injury that she has sustained on her left second toe. The patient had presented to an urgent care center and she was placed on clindamycin and methylprednisolone. The patient says is getting worse. She has denied any fever or chills. The patient also has denied any dizziness or lightheadedness. She's had no syncope. She also has denied any shortness of breath. The patient has been at her usual state of health. Diagnosis: Stroke: No - Discharge Data Discharge Date: 01/05/19 Discharge Disposition: Home, Self-Care 01 Condition: Stable - Patient Instructions Diet: Diabetic Diet Activity: As Tolerated Activity, Other: Limit standing activity on L foot, elevate when possible. Showering/Bathing: May Shower Notify Provider of: Fever, Increased Pain, Swelling and Redness, Drainage, Nausea and/or Vomiting - Discharge Plan *PRESCRIPTION DRUG MONITORING PROGRAM REVIEWED*: Not Applicable *COPY OF PRESCRIPTION DRUG MONITORING REPORT IN PATIENT RYLAN: Not Applicable Prescriptions/Med Rec: metroNIDAZOLE [Flagyl] 500 mg PO Q8H #42 tab Sulfamethoxazole/Trimethoprim [Bactrim 400-80 MG] 1 each PO BID #14 tablet Home Medications: Home Meds Aspirin 1 tab PO DAILY 01/02/15 [History] Escitalopram [Lexapro] 1 tab PO DAILY 01/02/15 [History] Metformin/Pioglitazone [Actoplus Met 15-500 MG] 1 tab PO BID 01/02/15 [History] Pantoprazole [ProTONIX Granules] 1 tab PO DAILY 01/02/15 [History] Budesonide/Formoterol Fumarate [Symbicort 80-4.5 Mcg Inhaler] 1 puff IH BID [History] Fish Oil/Picacho-3 Fatty Acids [Fish Oil 1,000 MG] 1 tab PO DAILY 04/22/17 [ History] Magnesium 30 mg PO DAILY 04/22/17 [History] atorvaSTATin [Lipitor] 20 mg PO BEDTIME 04/22/17 [History] Triamterene/Hydrochlorothiazid [Triamterene-HCTZ 37.5-25 MG] 1 each PO DAILY [History] Sulfamethoxazole/Trimethoprim [Bactrim 400-80 MG] 1 each PO BID #14 tablet 01/05 [Rx] metroNIDAZOLE [Flagyl] 500 mg PO Q8H #42 tab 01/05/19 [Rx] Oxygen Therapy Mode: Room Air Patient Handouts: Cellulitis, Adult, [id number], Sulfamethoxazole; Trimethoprim, SMX-TMP tablets, Metronidazole tablets or capsules Referrals: [facility] [Outside] Stiven Rivera MD [Primary Care Provider] - 01/13/19 11:00 am Raul Hollis DPM [Physician] - 01/07/19 3:30 pm - Discharge Summary/Plan Comment DC Time >30 min.: No Discharge Summary/Plan Comment: Admitting Diagnoses: L foot cellulitis Discharge Diagnoses: L foot diagnoses: Other PMH: DM Type 2 Obesity HTN Isabella was admitted secondary to L foot cellulitis which failed outpatient management with Clindamycin. BC negative. She was treated with Vancomycin and Zosyn. Leukocytosis resolved. She is feeling much better today. She reports her foot is much improved and is requesting discharge home. I spoke with Dr Hollis, Podiatry, who is available for outpatient follow up in the next couple days. I will discharge her home today, limit activity where she is walking on foot and to keep it elevated as much as she can. She will stop Clindamycin and steroids. She will be started on Bactrim single strength, due to renal function as well as Flagyl for 7 days. She reports allergy with nausea and diarrhea with Augmentin. She is to also follow up with PCP, Dr Rivera. She is to return to ED or clinic if concerns should arise. - General Info Date of Service: 01/05/19 Admission Dx/Problem (Free Text: Admission Diagnosis/Problem Admission Diagnosis/Problem Cellulitis Subjective Update: Sitting on edge of bed. Reports feeling well today and asking for discharge home. Reports no pain to foot and reports it looks much improved compared to yesterday. Functional Status: Reports: Pain Controlled, Tolerating Diet, Ambulating, Urinating - Review of Systems General: Reports: No Symptoms. Denies: Weakness, Fatigue HEENT: Reports: No Symptoms. Denies: Headaches, Sore Throat, Visual Changes Pulmonary: Reports: No Symptoms. Denies: Shortness of Breath Cardiovascular: Reports: No Symptoms. Denies: Chest Pain, Edema Gastrointestinal: Reports: No Symptoms. Denies: Abdominal Pain, Nausea, Vomiting Genitourinary: Reports: No Symptoms Musculoskeletal: Reports: No Symptoms Skin: Reports: Rash (L foot redness) Neurological: Reports: No Symptoms Psychiatric: Reports: No Symptoms. Denies: Confusion - Patient Data Vitals - Most Recent: Last Vital Signs Temp 97.4 F 01/05/19 07:46 Pulse 80 01/05/19 07:46 Resp 16 01/05/19 07:46 BP 147/79 H 01/05/19 07:46 Pulse Ox 94 L 01/05/19 07:46 Weight - Most Recent: 142.201 kg I&O - Last 24 hours: Intake & Output 01/04/19 01/05/19 01/05/19 22:59 06:59 14:59 Intake Total 1575 1225 Output Total 1200 1200 Balance 375 25 Lab Results - Last 24 hrs: Laboratory Results - last 24 hr 01/04/19 01/04/19 01/05/19 Range/Units 12:19 17:29 06:00 WBC 10.87 (4.0-11.0) K/uL RBC 4.02 L (4.30-5.90) M/uL Hgb 10.4 L (12.0-16.0) g/dL Hct 34.0 L (36.0-46.0) % MCV 84.6 (80.0-98.0) fL MCH 25.9 L (27.0-32.0) pg MCHC 30.6 L (31.0-37.0) g/dL RDW Std Deviation 47.8 (28.0-62.0) fl RDW Coeff of William 15 (11.0-15.0) % Plt Count 298 (150-400) K/uL MPV 9.70 (7.40-12.00) fL Neut % (Auto) 50.4 (48.0-80.0) % Lymph % (Auto) 31.6 (16.0-40.0) % [place] % (Auto) 7.8 (0.0-15.0) % Eos % (Auto) 9.8 H (0.0-7.0) % Baso % (Auto) 0.4 (0.0-1.5) % Neut # (Auto) 5.5 (1.4-5.7) K/uL Lymph # (Auto) 3.4 H (0.6-2.4) K/uL [place] # (Auto) 0.9 H (0.0-0.8) K/uL Eos # (Auto) 1.1 H (0.0-0.7) K/uL Baso # (Auto) 0.0 (0.0-0.1) K/uL Nucleated RBC % 0.0 /100WBC Nucleated RBCs # 0 K/uL Sodium (136-145) mmol/L Potassium (3.5-5.1) mmol/L Chloride (98-107) mmol/L Carbon Dioxide (21.0-32.0) mmol/L BUN (7.0-18.0) mg/dL Creatinine (0.6-1.0) mg/dL Est Cr Clr Drug Dosing mL/min Estimated GFR (MDRD) ml/min Glucose (74-106) mg/dL POC Glucose 134 H 122 H (60-110) mg/dL Hemoglobin A1c (4.5-6.2) % Calcium (8.5-10.1) mg/dL Total Bilirubin (0.2-1.0) mg/dL AST (15-37) IU/L ALT (14-63) IU/L Alkaline Phosphatase (46-116) U/L Total Protein (6.4-8.2) g/dL Albumin (3.4-5.0) g/dL Globulin (2.6-4.0) g/dL Albumin/Globulin Ratio (0.9-1.6) 01/05/19 01/05/19 Range/Units 06:00 06:00 WBC (4.0-11.0) K/uL RBC (4.30-5.90) M/uL Hgb (12.0-16.0) g/dL Hct (36.0-46.0) % MCV (80.0-98.0) fL MCH (27.0-32.0) pg MCHC (31.0-37.0) g/dL RDW Std Deviation (28.0-62.0) fl RDW Coeff of William (11.0-15.0) % Plt Count (150-400) K/uL MPV (7.40-12.00) fL Neut % (Auto) (48.0-80.0) % Lymph % (Auto) (16.0-40.0) % [place] % (Auto) (0.0-15.0) % Eos % (Auto) (0.0-7.0) % Baso % (Auto) (0.0-1.5) % Neut # (Auto) (1.4-5.7) K/uL Lymph # (Auto) (0.6-2.4) K/uL [place] # (Auto) (0.0-0.8) K/uL Eos # (Auto) (0.0-0.7) K/uL Baso # (Auto) (0.0-0.1) K/uL Nucleated RBC % /100WBC Nucleated RBCs # K/uL Sodium 141 (136-145) mmol/L Potassium 4.1 (3.5-5.1) mmol/L Chloride 105 (98-107) mmol/L Carbon Dioxide 28.5 (21.0-32.0) mmol/L BUN 36 H (7.0-18.0) mg/dL Creatinine 1.8 H (0.6-1.0) mg/dL Est Cr Clr Drug Dosing 24.97 mL/min Estimated GFR (MDRD) 28.3 ml/min Glucose 129 H (74-106) mg/dL POC Glucose (60-110) mg/dL Hemoglobin A1c 7.7 H (4.5-6.2) % Calcium 9.1 (8.5-10.1) mg/dL Total Bilirubin 0.3 (0.2-1.0) mg/dL AST 15 (15-37) IU/L ALT 28 (14-63) IU/L Alkaline Phosphatase 77 (46-116) U/L Total Protein 6.8 (6.4-8.2) g/dL Albumin 3.0 L (3.4-5.0) g/dL Globulin 3.8 (2.6-4.0) g/dL Albumin/Globulin Ratio 0.8 L (0.9-1.6) MIGUELINA Results - Last 24 hrs: Microbiology 01/03/19 21:39 Aerobic Blood Culture - Preliminary Blood - Venous - Lab Draw NO GROWTH AFTER 1 DAY Anaerobic Blood Culture - Preliminary NO GROWTH AFTER 1 DAY 01/03/19 21:30 Aerobic Blood Culture - Preliminary Blood - Venous NO GROWTH AFTER 1 DAY Anaerobic Blood Culture - Preliminary NO GROWTH AFTER 1 DAY Med Orders - Current: Current Medications Aspirin (Aspirin) 81 mg PO DAILY [facility] Last Admin: 01/05/19 08:34 Dose: 81 mg Atorvastatin Calcium (Lipitor) 20 mg PO BEDTIME [facility] Last Admin: 01/04/19 20:40 Dose: 20 mg Escitalopram Oxalate (Lexapro) 10 mg PO DAILY [facility] Last Admin: 01/05/19 08:34 Dose: 10 mg Heparin Sodium (Porcine) (Heparin Sodium) 5,000 units SUBCUT Q8H [facility] Last Admin: 01/05/19 04:54 Dose: 5,000 units Sodium Chloride (Normal Saline) 1,000 mls @ 75 mls/hr IV ASDIRECTED [facility] Last Admin: 01/04/19 22:52 Dose: 75 mls/hr Vancomycin HCl 1.25 gm/ Sodium (Chloride) 250 mls @ 166.667 mls/hr IV Q24H [facility] Last Admin: 01/04/19 20:40 Dose: 166.667 mls/hr Piperacillin Sod/Tazobactam (Sod 2.25 gm/ Sodium Chloride) 50 mls @ 100 mls/hr IV Q6H [facility] Last Admin: 01/05/19 04:55 Dose: 100 mls/hr Insulin Aspart (Novolog) 0 unit SUBCUT TIDAC [facility]; Protocol Last Admin: 01/05/19 07:13 Dose: Not Given Magnesium Oxide (Magnesium Oxide) 400 mg PO DAILY [facility] Last Admin: 01/05/19 08:34 Dose: 400 mg Pantoprazole Sodium (Protonix) 40 mg PO DAILY [facility] Last Admin: 01/05/19 08:34 Dose: 40 mg Budesonide/Formoterol 80/4.5 Mcg (Symbicort) 1 each INH BID [facility] Last Admin: 01/05/19 08:37 Dose: Not Given Triamterene/HCTZ (Maxzide 25-37.5 Mg) 1 each PO DAILY [facility] Last Admin: 01/05/19 08:34 Dose: 1 each Vancomycin HCl (Pharmacy To Dose - Vancomycin) 1 dose .XX ASDIRECTED [facility] Discontinued Medications Vancomycin HCl 1 gm/ Sodium (Chloride) 250 mls @ 166 mls/hr IV ONETIME ONE Stop: 01/03/19 22:52 Last Admin: 01/03/19 22:26 Dose: Not Given Sodium Chloride (Normal Saline) Confirm Administered Dose 250 mls @ as directed .ROUTE .STK-MED ONE Stop: 01/03/19 22:05 Last Admin: 01/03/19 22:21 Dose: 166 mls/hr Piperacillin Sod/Tazobactam (Sod 2.25 gm/ Sodium Chloride) 50 mls @ 100 mls/hr IV Q6H ESTEFANI Vancomycin HCl (Vancomycin) Confirm Administered Dose 1 gm .ROUTE .STK-MED ONE Stop: 01/03/19 22:04 Last Admin: 01/03/19 22:20 Dose: 1 gm - Exam General: Reports: Alert, Oriented, Cooperative, No Acute Distress Lungs: Reports: Clear to Auscultation, Normal Respiratory Effort Cardiovascular: Reports: Regular Rate, Regular Rhythm GI/Abdominal Exam: Normal Bowel Sounds, Soft, Non-Tender, No Distention, No Mass Back Exam: Reports: Normal Inspection, Full Range of Motion Extremities: Normal Inspection, Normal Range of Motion, Non-Tender, No Pedal Edema Wound/Incisions: Reports: Healing Well, Erythema Improving (dule erythema 0.5 in below 2nd metatarsal. bullae noted to 2nd metatarsal with clear fluid. No fluctuance noted. No pain with palpation or movement.) Neurological: Reports: No New Focal Deficit Psy/Mental Status: Reports: Alert, Normal Affect, Normal Mood <Rashel Aguilar - Last Filed: 01/05/19 13:06> Discharge Summary - Hospital Course HPI Initial Comments: I have seen and examined the patient independently of Radha Milan CNP. I have reviewed and agree with the plan of care as outlined by Radha and agree with the plan as outlined by her. I have discussed the case with the her. Please see orders. - Discharge Diagnosis/Problem(s) (1) Cellulitis SNOMED Code(s): 856199077 ICD Code: L03.90 - CELLULITIS, UNSPECIFIED Status: Acute Priority: High Qualifiers: Site of cellulitis: extremity Site of cellulitis of extremity: lower extremity Laterality: left Qualified Code(s): L03.116 - Cellulitis of left lower limb (2) Diabetes mellitus type 2 in obese SNOMED Code(s): 23315739 ICD Code: E11.69 - TYPE 2 DIABETES MELLITUS WITH OTHER SPECIFIED COMPLICATION ; E66.9 - OBESITY, UNSPECIFIED Status: Chronic Priority: High (3) Hypertension SNOMED Code(s): 19131494 ICD Code: I10 - ESSENTIAL (PRIMARY) HYPERTENSION Status: Chronic Priority : High Qualifiers: Hypertension type: essential hypertension Qualified Code(s): I10 - Essential (primary) hypertension (4) Morbid obesity with BMI of 50.0-59.9, adult SNOMED Code(s): 553623731, 28239900471148 ICD Code: E66.01 - MORBID (SEVERE) OBESITY DUE TO EXCESS CALORIES; Z68.43 - BODY MASS INDEX (BMI) 50-59.9, ADULT Status: Chronic Priority: High - Patient Data Vitals - Most Recent: Last Vital Signs Temp 36.3 C 01/05/19 07:46 Pulse 80 01/05/19 07:46 Resp 16 01/05/19 07:46 BP 147/79 H 01/05/19 07:46 Pulse Ox 94 L 01/05/19 07:46 I&O - Last 24 hours: Intake & Output 01/04/19 01/05/19 01/05/19 22:59 06:59 14:59 Intake Total 1575 1225 1114 Output Total 1200 1200 750 Balance 375 25 364 Lab Results - Last 24 hrs: Laboratory Results - last 24 hr 01/04/19 01/05/19 01/05/19 Range/Units 17:29 06:00 06:00 WBC 10.87 (4.0-11.0) K/uL RBC 4.02 L (4.30-5.90) M/uL Hgb 10.4 L (12.0-16.0) g/dL Hct 34.0 L (36.0-46.0) % MCV 84.6 (80.0-98.0) fL MCH 25.9 L (27.0-32.0) pg MCHC 30.6 L (31.0-37.0) g/dL RDW Std Deviation 47.8 (28.0-62.0) fl RDW Coeff of William 15 (11.0-15.0) % Plt Count 298 (150-400) K/uL MPV 9.70 (7.40-12.00) fL Neut % (Auto) 50.4 (48.0-80.0) % Lymph % (Auto) 31.6 (16.0-40.0) % [place] % (Auto) 7.8 (0.0-15.0) % Eos % (Auto) 9.8 H (0.0-7.0) % Baso % (Auto) 0.4 (0.0-1.5) % Neut # (Auto) 5.5 (1.4-5.7) K/uL Lymph # (Auto) 3.4 H (0.6-2.4) K/uL [place] # (Auto) 0.9 H (0.0-0.8) K/uL Eos # (Auto) 1.1 H (0.0-0.7) K/uL Baso # (Auto) 0.0 (0.0-0.1) K/uL Nucleated RBC % 0.0 /100WBC Nucleated RBCs # 0 K/uL Sodium 141 (136-145) mmol/L Potassium 4.1 (3.5-5.1) mmol/L Chloride 105 (98-107) mmol/L Carbon Dioxide 28.5 (21.0-32.0) mmol/L BUN 36 H (7.0-18.0) mg/dL Creatinine 1.8 H (0.6-1.0) mg/dL Est Cr Clr Drug Dosing 24.97 mL/min Estimated GFR (MDRD) 28.3 ml/min Glucose 129 H (74-106) mg/dL POC Glucose 122 H (60-110) mg/dL Hemoglobin A1c (4.5-6.2) % Calcium 9.1 (8.5-10.1) mg/dL Total Bilirubin 0.3 (0.2-1.0) mg/dL AST 15 (15-37) IU/L ALT 28 (14-63) IU/L Alkaline Phosphatase 77 (46-116) U/L Total Protein 6.8 (6.4-8.2) g/dL Albumin 3.0 L (3.4-5.0) g/dL Globulin 3.8 (2.6-4.0) g/dL Albumin/Globulin Ratio 0.8 L (0.9-1.6) 01/05/19 Range/Units 06:00 WBC (4.0-11.0) K/uL RBC (4.30-5.90) M/uL Hgb (12.0-16.0) g/dL Hct (36.0-46.0) % MCV (80.0-98.0) fL MCH (27.0-32.0) pg MCHC (31.0-37.0) g/dL RDW Std Deviation (28.0-62.0) fl RDW Coeff of William (11.0-15.0) % Plt Count (150-400) K/uL MPV (7.40-12.00) fL Neut % (Auto) (48.0-80.0) % Lymph % (Auto) (16.0-40.0) % [place] % (Auto) (0.0-15.0) % Eos % (Auto) (0.0-7.0) % Baso % (Auto) (0.0-1.5) % Neut # (Auto) (1.4-5.7) K/uL Lymph # (Auto) (0.6-2.4) K/uL [place] # (Auto) (0.0-0.8) K/uL Eos # (Auto) (0.0-0.7) K/uL Baso # (Auto) (0.0-0.1) K/uL Nucleated RBC % /100WBC Nucleated RBCs # K/uL Sodium (136-145) mmol/L Potassium (3.5-5.1) mmol/L Chloride (98-107) mmol/L Carbon Dioxide (21.0-32.0) mmol/L BUN (7.0-18.0) mg/dL Creatinine (0.6-1.0) mg/dL Est Cr Clr Drug Dosing mL/min Estimated GFR (MDRD) ml/min Glucose (74-106) mg/dL POC Glucose (60-110) mg/dL Hemoglobin A1c 7.7 H (4.5-6.2) % Calcium (8.5-10.1) mg/dL Total Bilirubin (0.2-1.0) mg/dL AST (15-37) IU/L ALT (14-63) IU/L Alkaline Phosphatase (46-116) U/L Total Protein (6.4-8.2) g/dL Albumin (3.4-5.0) g/dL Globulin (2.6-4.0) g/dL Albumin/Globulin Ratio (0.9-1.6) MIGUELINA Results - Last 24 hrs: Microbiology 01/03/19 21:39 Aerobic Blood Culture - Preliminary Blood - Venous - Lab Draw NO GROWTH AFTER 1 DAY Anaerobic Blood Culture - Preliminary NO GROWTH AFTER 1 DAY 01/03/19 21:30 Aerobic Blood Culture - Preliminary Blood - Venous NO GROWTH AFTER 1 DAY Anaerobic Blood Culture - Preliminary NO GROWTH AFTER 1 DAY Med Orders - Current: Current Medications Discontinued Medications Aspirin (Aspirin) 81 mg PO DAILY [facility] Last Admin: 01/05/19 08:34 Dose: 81 mg Atorvastatin Calcium (Lipitor) 20 mg PO BEDTIME [facility] Last Admin: 01/04/19 20:40 Dose: 20 mg Escitalopram Oxalate (Lexapro) 10 mg PO DAILY [facility] Last Admin: 01/05/19 08:34 Dose: 10 mg Heparin Sodium (Porcine) (Heparin Sodium) 5,000 units SUBCUT Q8H [facility] Last Admin: 01/05/19 04:54 Dose: 5,000 units Vancomycin HCl 1 gm/ Sodium (Chloride) 250 mls @ 166 mls/hr IV ONETIME ONE Stop: 01/03/19 22:52 Last Admin: 01/03/19 22:26 Dose: Not Given Sodium Chloride (Normal Saline) Confirm Administered Dose 250 mls @ as directed .ROUTE .STK-MED ONE Stop: 01/03/19 22:05 Last Admin: 01/03/19 22:21 Dose: 166 mls/hr Sodium Chloride (Normal Saline) 1,000 mls @ 75 mls/hr IV ASDIRECTED [facility] Last Admin: 01/04/19 22:52 Dose: 75 mls/hr Vancomycin HCl 1.25 gm/ Sodium (Chloride) 250 mls @ 166.667 mls/hr IV Q24H [facility] Last Admin: 01/04/19 20:40 Dose: 166.667 mls/hr Piperacillin Sod/Tazobactam (Sod 2.25 gm/ Sodium Chloride) 50 mls @ 100 mls/hr IV Q6H [facility] Piperacillin Sod/Tazobactam (Sod 2.25 gm/ Sodium Chloride) 50 mls @ 100 mls/hr IV Q6H [facility] Last Admin: 01/05/19 09:51 Dose: 100 mls/hr Insulin Aspart (Novolog) 0 unit SUBCUT TIDAC [facility]; Protocol Last Admin: 01/05/19 07:13 Dose: Not Given Magnesium Oxide (Magnesium Oxide) 400 mg PO DAILY [facility] Last Admin: 01/05/19 08:34 Dose: 400 mg Pantoprazole Sodium (Protonix) 40 mg PO DAILY [facility] Last Admin: 01/05/19 08:34 Dose: 40 mg Budesonide/Formoterol 80/4.5 Mcg (Symbicort) 1 each INH BID [facility] Last Admin: 01/05/19 08:37 Dose: Not Given Triamterene/HCTZ (Maxzide 25-37.5 Mg) 1 each PO DAILY [facility] Last Admin: 01/05/19 08:34 Dose: 1 each Vancomycin HCl (Vancomycin) Confirm Administered Dose 1 gm .ROUTE .STK-MED ONE Stop: 01/03/19 22:04 Last Admin: 01/03/19 22:20 Dose: 1 gm Vancomycin HCl (Pharmacy To Dose - Vancomycin) 1 dose .XX ASDIRECTED [facility]
== END 2019-01-05 10:36 | disposition home or self-care (01) ==
LOC: MW.ED 19:55 → MW.MS 21:22
PROVIDERS: ADMIT Internal Medicine; ATTEND Internal Medicine
DX: L03.116 Cellulitis of left lower limb (principal); I10 Essential (primary) hypertension; E11.69 Type 2 diabetes mellitus with other specified complication; E66.01 Morbid (severe) obesity due to excess calories; Z68.43 Body mass index [BMI] 50.0-59.9, adult; Z79.82 Long term (current) use of aspirin; Z79.899 Other long term (current) drug therapy; Z79.84 Long term (current) use of oral hypoglycemic drugs; Z79.51 Long term (current) use of inhaled steroids
CPT/HCPCS: 36415; 73630; 80048; 80053; 82962; 83036; 85025; 87040; 96361; 96365; 96366; 96367; 96372; 96376; 99284; A9270; G0378; J1644; J2543; J3370; J7040; J7050

== ENCOUNTER 2019-10-30 17:33 | Emergency (ER) | payer BC ==
--- NOTE | 2019-10-30 18:45 | EDM.PDOC ---
ED HPI GENERAL MEDICAL PROBLEM - General Chief Complaint: Skin Complaint Stated Complaint: RASH ON BACK Time Seen by Provider: 10/30/19 17:57 - History of Present Illness INITIAL COMMENTS - FREE TEXT/NARRATIVE: 63-year-old female on multiple medications presents with a nonpruritic rash on the posterior and anterior trunk. Rash started 2 days ago, and is described as a burning sensation, localized between her scapula and substernal area. Denies rash today eyes or mouth. Denies fever. 2 days ago she was switched to Norvasc for high blood pressure medication. ROS: A 10-point review of systems, other than pertinent positives and negatives as stated per HPI, is otherwise negative PHYSICAL EXAM General: AOx4, GCS = 15, No distress HEENT: dry mucous membrane Skin: Bull's-eye lesion 3cm in size between her scapula with trace surrounding erythema, bull's-eye lesion 1cm in size to the sub-sternum. Negative Nikolsky sign. Neck: supple, no meningismus, no Kernig or Brudzinski Cardiac: S1S2 RRR Respiratory: CTAB, no crackles or rales, no wheezing Abdomen: Soft, nontender, no rebound or guarding, nondistended, no pulsatile mass. Back: nontender Musculoskeletal: NVI distally, no deformity Neuro: No focal deficits, CN 2 - 12 WNL. MEDICAL DECISION MAKING: I reviewed the patients past medical records, lab and radiographic findings. I discussed the case with family members. My differential diagnosis included: Erythema multiforme, Mak-Celso syndrome, TENS. Her rash is localized to the spinal area between her scapula, it does not follow a dermatomal distribution, I do not suspect shingles. She has no rash on her mucous membranes or on her lips, I do not suspect Mak-Celso syndrome. She is on multiple medications with recent new medication changes, correlating with her onset of her rash. - Related Data Allergies Allergy/AdvReac Type Severity Reaction Status Date / Time No Known Allergies Allergy Verified 01/03/19 22:29 Home Meds: Home Meds Aspirin 1 tab PO DAILY 01/02/15 [History] Escitalopram [Lexapro] 1 tab PO DAILY 01/02/15 [History] Metformin/Pioglitazone [Actoplus Met 15-500 MG] 1 tab PO BID 01/02/15 [History] Pantoprazole [ProTONIX Granules] 1 tab PO DAILY 01/02/15 [History] Budesonide/Formoterol Fumarate [Symbicort 80-4.5 MCG] 1 puff IH DAILY 04/22/17 [ History] Fish Oil/[place]-3 Fatty Acids [Fish Oil 1,000 MG] 1 tab PO DAILY 04/22/17 [ History] atorvaSTATin [Lipitor] 20 mg PO BEDTIME 04/22/17 [History] amLODIPine [Norvasc] 5 mg PO DAILY 10/30/19 [History] Past Medical History - Past Health History Medical/Surgical History: Denies Medical/Surgical History HEENT History: Reports: Impaired Vision Other HEENT History: wears glasses Cardiovascular History: Reports: High Cholesterol, Hypertension Respiratory History: Reports: COPD, Sleep Apnea Gastrointestinal History: Reports: None Genitourinary History: Reports: None FIELD MARKETING LEAD History: Reports: , Spontaneous Musculoskeletal History: Reports: None Neurological History: Reports: None Psychiatric History: Reports: Anxiety Endocrine/Metabolic History: Reports: Diabetes, Type II Hematologic History: Reports: None - Infectious Disease History Infectious Disease History: Reports: Chicken Pox - Past Surgical History HEENT Surgical History: Reports: None Cardiovascular Surgical History: Reports: None Respiratory Surgical History: Reports: None GI Surgical History: Reports: Cholecystectomy Social & Family History - Family History Family Medical History: Noncontributory - Tobacco Use Smoking Status *Q: Never Smoker - Caffeine Use Caffeine Use: Reports: Coffee - Recreational Drug Use Recreational Drug Use: No ED ROS GENERAL - Review of Systems Review Of Systems: See Below (see dication) ED EXAM, SKIN/RASH Exam: See Below (see dictation) Course - Vital Signs Last Recorded V/S: Last Vital Signs Temp 97.1 F 10/30/19 17:50 Pulse 76 10/30/19 17:50 Resp 17 10/30/19 17:50 BP 166/58 H 10/30/19 17:50 Pulse Ox 95 10/30/19 17:50 - Re-Assessments/Exams Free Text/Narrative Re-Assessment/Exam: 10/30/19 18:43 She is clinically stable for discharge. I instructed her to stop norvasc and f/ u with [facility] for medication adjustment. I performed a repeat examination and the patient has not demonstrated any new abnormal findings. Patient exhibits normal vital signs and has exhibited a normal gait. I advised the patient to return to the ER for reevaluation if symptoms worsened, and to follow up with their PCP at [facility] within 2-3 days. Departure - Departure Time of Disposition: 18:44 Disposition: Home, Self-Care 01 Condition: Good Clinical Impression: Erythema multiforme - Discharge Information *PRESCRIPTION DRUG MONITORING PROGRAM REVIEWED*: No *COPY OF PRESCRIPTION DRUG MONITORING REPORT IN PATIENT RYLAN: No Instructions: Erythema Multiforme Referrals: Stiven Rivera MD [Primary Care Provider] - Additional Instructions: The following information is given to patients seen in the emergency department who are being discharged to home. This information is to outline your options for follow-up care. We provide all patients seen in our emergency department with a follow-up referral. The need for follow-up, as well as the timing and circumstances, are variable depending upon the specifics of your emergency department visit. If you don't have a primary care physician on staff, we will provide you with a referral. We always advise you to contact your personal physician following an emergency department visit to inform them of the circumstance of the visit and for follow-up with them and/or the need for any referrals to a consulting specialist. The emergency department will also refer you to a specialist when appropriate. This referral assures that you have the opportunity for follow-up care with a specialist. All of these measure are taken in an effort to provide you with optimal care, which includes your follow-up. Under all circumstances we always encourage you to contact your private physician who remains a resource for coordinating your care. When calling for follow-up care, please make the office aware that this follow-up is from your recent emergency room visit. If for any reason you are refused follow-up, please contact the [facility] Emergency Department at and asked to speak to the emergency department charge nurse. Sepsis Event Note - Evaluation Sepsis Screening Result: No Definite Risk - Focused Exam Vital Signs: Vital Signs Temp Pulse Resp BP Pulse Ox 10/30/19 17:50 97.1 F 76 17 166/58 H 95 Date Exam was Performed: 10/30/19 Time Exam was Performed: 18:40
[2019-10-30 19:06] VITALS: BP 155/51; PULSE 73
== END 2019-10-30 18:53 | disposition home or self-care (01) ==
LOC: MW.ED 17:33
DX: L51.9 Erythema multiforme, unspecified (principal); E78.00 Pure hypercholesterolemia, unspecified; I10 Essential (primary) hypertension; J44.9 Chronic obstructive pulmonary disease, unspecified; E11.9 Type 2 diabetes mellitus without complications; F41.9 Anxiety disorder, unspecified; Z79.82 Long term (current) use of aspirin; Z79.899 Other long term (current) drug therapy; Z79.84 Long term (current) use of oral hypoglycemic drugs
CPT/HCPCS: 99282

== ENCOUNTER 2020-04-09 08:30 | Emergency (ER) | payer BC, MEDICARE ==
--- NOTE | 2020-04-09 08:45 | EDM.PDOC ---
ED HPI GENERAL MEDICAL PROBLEM - General Chief Complaint: ENT Problem Stated Complaint: POSSIBLE SINUS INFECTION Time Seen by Provider: 04/09/20 09:05 Source of Information: Reports: Patient History Limitations: Reports: No Limitations - History of Present Illness INITIAL COMMENTS - FREE TEXT/NARRATIVE: 64-year-old female past medical history diabetes, COPD, obesity, sleep apnea on CPAP at night presents for concern for sinus infection. Patient was diagnosed with COVID-19 2 weeks ago. Notes improvement in shortness of breath and chest pain, no longer complaining of either. She notes continued sinus pressure in her forehead, maxillary face associated with rhinorrhea, and sinus congestion. She has been trying Flonase at home without relief. She denies fevers. - Related Data Allergies Allergy/AdvReac Type Severity Reaction Status Date / Time No Known Allergies Allergy Verified 04/09/20 08:42 Home Meds: Home Meds Aspirin 1 tab PO DAILY 01/02/15 [History] Escitalopram [Lexapro] 10 mg PO DAILY 01/02/15 [History] Metformin/Pioglitazone [Actoplus Met 15-500 MG] 1 tab PO BID 01/02/15 [History] Pantoprazole [ProTONIX Granules] 1 tab PO DAILY 01/02/15 [History] Budesonide/Formoterol Fumarate [Symbicort 80-4.5 MCG] 2 puff IH BID 04/22/17 [History] Fish Oil/[place]-3 Fatty Acids [Fish Oil 1,000 MG] 1 tab PO DAILY 04/22/17 [History] Amoxicillin/Potassium Clav [Augmentin 875-125 Tablet] 1 each PO BID 7 Days #14 tablet 04/09/20 [Rx] Amoxicillin/Potassium Clav [Augmentin 875-125 Tablet] 1 each PO BID 7 Days #14 tablet 04/09/20 [Rx] Furosemide [Lasix] 40 mg PO DAILY 04/09/20 [History] Potassium Chloride [Klor-Con 10] 10 meq PO DAILY 04/09/20 [History] Rosuvastatin Calcium [Crestor] 40 mg PO DAILY 04/09/20 [History] Past Medical History - Past Health History Medical/Surgical History: Denies Medical/Surgical History HEENT History: Reports: Impaired Vision Other HEENT History: wears glasses Cardiovascular History: Reports: High Cholesterol, Hypertension Respiratory History: Reports: COPD, Sleep Apnea Gastrointestinal History: Reports: None Genitourinary History: Reports: None 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: , 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 Musculoskeletal History: Reports: None Neurological History: Reports: None Psychiatric History: Reports: Anxiety Endocrine/Metabolic History: Reports: Diabetes, Type II Hematologic History: Reports: None - Infectious Disease History Infectious Disease History: Reports: Chicken Pox - Past Surgical History HEENT Surgical History: Reports: None Cardiovascular Surgical History: Reports: None Respiratory Surgical History: Reports: None GI Surgical History: Reports: Cholecystectomy Social & Family History - Family History Family Medical History: Noncontributory - Caffeine Use Caffeine Use: Reports: Coffee ED ROS GENERAL - Review of Systems Review Of Systems: Comprehensive ROS is negative, except as noted in HPI. ED EXAM, GENERAL - Physical Exam Exam: See Below Exam Limited By: No Limitations General Appearance: Alert, WD/WN, No Apparent Distress Ears: Normal External Exam Nose: Normal Inspection, Normal Mucosa Throat/Mouth: Normal Inspection, Normal Lips, Normal Teeth, Normal Gums, Normal Oropharynx, Normal Voice, No Airway Compromise Head: Atraumatic, Normocephalic Neck: Normal Inspection Respiratory/Chest: No Respiratory Distress, Lungs Clear, Normal Breath Sounds, No Accessory Muscle Use Cardiovascular: Normal Peripheral Pulses Neurological: Alert, Normal Gait Psychiatric: Normal Affect, Normal Mood Skin Exam: Warm, Dry, Intact, Normal Color Course - Vital Signs Last Recorded V/S: Last Vital Signs Temp 96.2 F L 04/09/20 08:43 Pulse 104 H 04/09/20 08:43 Resp 17 04/09/20 08:43 BP 149/71 H 04/09/20 08:43 Pulse Ox 92 L 04/09/20 08:43 - Re-Assessments/Exams Free Text/Narrative Re-Assessment/Exam: 04/09/20 09:06 Explained to patient that symptoms are likely related to recent COVID-19 infection. Will send prescription for Augmentin in case there is superimposed sinusitis considering symptoms have been for greater than 2 weeks. Recommend follow-up with primary care physician for further work-up. Patient's oxygen saturation is 92% on room air, she does have a known history of COPD, and denies any shortness of breath or chest tightness. Will defer larger work-up, patient advised to return to emergency department if she does develop any shortness of breath or chest tightness. She demonstrates good health literacy and understands return precautions. Departure - Departure Time of Disposition: 09:02 Disposition: Home, Self-Care 01 Condition: Good Clinical Impression: Sinusitis Qualifiers: Sinusitis location: unspecified location Chronicity: acute Recurrence: non- recurrent Qualified Code(s): J01.90 - Acute sinusitis, unspecified - Discharge Information Prescriptions: Amoxicillin/Potassium Clav [Augmentin 875-125 Tablet] 1 each PO BID 7 Days #14 tablet Amoxicillin/Potassium Clav [Augmentin 875-125 Tablet] 1 each PO BID 7 Days #14 tablet Instructions: Sinusitis, Adult, [id number] Referrals: tSiven Rivera MD [Primary Care Provider] - Forms: ED Department Discharge Additional Instructions: The following information is given to patients seen in the emergency department who are being discharged to home. This information is to outline your options for follow-up care. We provide all patients seen in our emergency department wit h a follow-up referral. The need for follow-up, as well as the timing and circumstances, are variable depending upon the specifics of your emergency department visit. If you don't have a primary care physician on staff, we will provide you with a referral. We always advise you to contact your personal physician following an emergency department visit to inform them of the circumstance of the visit and for follow-up with them and/or the need for any referrals to a consulting specialist. The emergency department will also refer you to a specialist when appropriate. This referral assures that you have the opportunity for follow-up care with a specialist. All of these measure are taken in an effort to provide you with optimal care, which includes your follow-up. Under all circumstances we always encourage you to contact your private physician who remains a resource for coordinating your care. When calling for follow-up care, please make the office aware that this follow-up is from your recent emergency room visit. If for any reason you are refused follow-up, please contact the [facility] Emergency Department at and asked to speak to the emergency department charge nurse. Please follow up with your primary care physician. If you do not have a primary care physician, see below: [facility] [address] [place] [address] [phone] [facility] [address] [place] [address] Sepsis Event Note (ED) - Focused Exam Vital Signs: Vital Signs Temp Pulse Resp BP Pulse Ox 04/09/20 08:43 96.2 F L 104 H 17 149/71 H 92 L
[2020-04-09 09:13] VITALS: BP 138/65; PULSE 97
== END 2020-04-09 09:17 | disposition home or self-care (01) ==
LOC: MW.ED 08:30
DX: J01.90 Acute sinusitis, unspecified (principal); J44.9 Chronic obstructive pulmonary disease, unspecified; I10 Essential (primary) hypertension; E78.00 Pure hypercholesterolemia, unspecified; E11.9 Type 2 diabetes mellitus without complications; F41.9 Anxiety disorder, unspecified; Z79.82 Long term (current) use of aspirin; Z79.84 Long term (current) use of oral hypoglycemic drugs; Z90.49 Acquired absence of other specified parts of digestive tract; Z79.899 Other long term (current) drug therapy
CPT/HCPCS: 99282; 99283

== ENCOUNTER 2021-08-10 23:38 | Emergency (ER) | payer MEDICARE, BC ==
[2021-08-11 00:34] LABS: BLOOD UREA NITROGEN,BUN 24 mg/dL (7.0-18.0); CARBON DIOXIDE,CO2 27.2 mmol/L (21.0-32.0); CHLORIDE,CL 96 mmol/L (98-107); GLUCOSE RANDOM 371 mg/dL (74-106); POTASSIUM,K 3.3 mmol/L (3.5-5.1); SODIUM,NA 135 mmol/L (136-145)
[2021-08-11] MEDS ORDERED: Lactated Ringers 1,000 ML IV STA (00:48)
[2021-08-11 02:45] VITALS: BP 131/95; PULSE 91
== END 2021-08-11 02:40 | disposition home or self-care (01) ==
LOC: MW.ED 23:38
DX: R10.9 Unspecified abdominal pain (principal); I10 Essential (primary) hypertension; E78.00 Pure hypercholesterolemia, unspecified; J44.9 Chronic obstructive pulmonary disease, unspecified; E11.9 Type 2 diabetes mellitus without complications; F41.9 Anxiety disorder, unspecified; E66.9 Obesity, unspecified; Z79.82 Long term (current) use of aspirin; Z79.899 Other long term (current) drug therapy
CPT/HCPCS: 36415; 74176; 80048; 81001; 85025; 99284; J7120

== ENCOUNTER 2021-09-26 12:54 | Emergency (ER) | payer MEDICARE, BC ==
[2021-09-26] MEDS ORDERED: Aspirin 81 MG Tab.Chew PO ONE (13:01)
[2021-09-26] MEDS ORDERED: Sodium Chloride 0.9% 10 ML Syringe FLUSH PRN (13:06)
[2021-09-26] MEDS ORDERED: Sodium Chloride 0.9% 2.5 ML Syringe FLUSH PRN (13:06)
[2021-09-26] MEDS ORDERED: Morphine 4 MG/ML VIAL IVPUSH ONE (13:36)
[2021-09-26 14:07] LABS: CARBON DIOXIDE,CO2 28.6 mmol/L (21.0-32.0); POTASSIUM,K 3.2 mmol/L (3.5-5.1)
[2021-09-26] MEDS ORDERED: LORazepam 2 MG/ML SDV IVPUSH STA ×2 (15:26→17:48)
[2021-09-26 17:45] VITALS: BP 120/60; PULSE 103
== END 2021-09-26 17:58 ==
LOC: MW.ED 12:54
DX: I20.0 Unstable angina (principal); I10 Essential (primary) hypertension; E11.9 Type 2 diabetes mellitus without complications; E78.00 Pure hypercholesterolemia, unspecified; J44.9 Chronic obstructive pulmonary disease, unspecified; Z88.8 Allergy status to other drugs, medicaments and biological substances; Z79.82 Long term (current) use of aspirin; Z79.899 Other long term (current) drug therapy; Z79.84 Long term (current) use of oral hypoglycemic drugs
CPT/HCPCS: 36415; 71045; 80053; 84484; 85025; 93005; 96374; 96375; 99285; A9270; J2060; J2270; J3490

== ENCOUNTER 2021-10-08 15:55 | Observation (INO) | payer MEDICARE, BC ==
[2021-10-08] MEDS ORDERED: Sodium Chloride 0.9% 10 ML Syringe FLUSH PRN (16:03)
[2021-10-08] MEDS ORDERED: Sodium Chloride 0.9% 2.5 ML Syringe FLUSH PRN (16:03)
[2021-10-08] MEDS ORDERED: Sodium Chloride 0.9% 1,000 ML IV ONE (16:06)
[2021-10-08 17:00] LABS: CARBON DIOXIDE,CO2 28.9 mmol/L (21.0-32.0); POTASSIUM,K 2.9 mmol/L (3.5-5.1)
[2021-10-08] MEDS ORDERED: Potassium Chloride Riders 40 MEQ in Premix Bag 1 BAG IV ONE (17:17)
[2021-10-08] MEDS ORDERED: Magnesium Sulfate/Water 4 GM in Premix Bag 1 BAG IV ONE (17:17)
[2021-10-08] MEDS ORDERED: Potassium Chloride 20 MEQ Tab.ER PO ONE (17:18)
[2021-10-08] MEDS ORDERED: Heparin Sodium 5,000 Units/ML Vial IVPUSH ONE (18:11)
[2021-10-08] MEDS ORDERED: Heparin Sodium/0.45% NaCl 500 ML IV SCH (18:15)
[2021-10-08] MEDS ORDERED: Morphine 4 MG/ML VIAL IVPUSH ONE (18:16)
[2021-10-08] MEDS ORDERED: Ondansetron 4 MG/2 ML SDV IVPUSH ONE (18:16)
[2021-10-08] MEDS ORDERED: LORazepam 2 MG/ML SDV IVPUSH ONE (18:54)
[2021-10-08] MEDS ORDERED: Piperacillin/Tazobactam 3.375 GM in Sodium Chloride 0.9% 50 ML IV ONE (18:57)
[2021-10-08] MEDS ORDERED: VANCOmycin 1.75 GM/350 ML 350 ML IV ONE (19:15)
[2021-10-08 19:38] LABS: CORONAVIRUS COVID-19 NAA NEGATIVE (NEGATIVE); INFLUENZA A NAA NEGATIVE (NEGATIVE); INFLUENZA B NAA NEGATIVE (NEGATIVE)
[2021-10-09] MEDS ORDERED: Albuterol/Ipratropium 3.0-0.5 MG/3 ML Neb Soln NEB PRN (00:49)
[2021-10-09] MEDS ORDERED: Acetaminophen 325 MG Tab PO PRN (00:49)
[2021-10-09] MEDS ORDERED: 50% Dextrose in Water 50 ML Syringe IVPUSH PRN (00:53)
[2021-10-09] MEDS ORDERED: Glucagon,Human Recombinant 1 MG Vial IM PRN (00:53)
[2021-10-09 06:59] LABS: CARBON DIOXIDE,CO2 27.2 mmol/L (21.0-32.0)
[2021-10-09] MEDS ORDERED: Insulin Aspart 100 Units/ML 3 ML Pen SUBCUT SCH (07:30)
[2021-10-09] MEDS ORDERED: Omeprazole 20 MG Cap.CR PO SCH (07:30)
[2021-10-09] MEDS ORDERED: Heparin Sodium 5,000 Units/ML Vial IVPUSH PRN (07:50)
[2021-10-09] MEDS ORDERED: Sodium Chloride 0.9% 10 ML Syringe FLUSH PRN (07:53)
[2021-10-09] MEDS ORDERED: Sodium Chloride 0.9% 2.5 ML Syringe FLUSH PRN (07:53)
[2021-10-09] MEDS ORDERED: Heparin Sodium/0.45% NaCl 500 ML IV SCH (08:00)
[2021-10-09] MEDS: Morphine 2 MG/ML SYRINGE IVPUSH PRN ×2 (08:31→10:49)
[2021-10-09] MEDS ORDERED: Escitalopram 10 MG Tab PO SCH (09:00)
[2021-10-09] MEDS ORDERED: FORMOTEROL FUMARATE INH SCH (09:00)
[2021-10-09] MEDS ORDERED: BUDESONIDE INH SCH (09:00)
[2021-10-09] MEDS ORDERED: Potassium Chloride 20 MEQ Tab.ER PO ONE (09:08)
[2021-10-09] MEDS ORDERED: LORazepam 2 MG/ML SDV IVPUSH ONE (10:44)
[2021-10-09 12:07] VITALS: BP 110/61; PULSE 98
[2021-10-09] MEDS ORDERED: Rosuvastatin 10 MG Tab PO SCH (21:00)
== END 2021-10-09 12:22 ==
LOC: MW.ED 15:55 → MW.MS 19:01
PROVIDERS: ADMIT Internal Medicine; ATTEND Internal Medicine
DX: I31.3 Pericardial effusion (noninflammatory) (principal); J90 Pleural effusion, not elsewhere classified; J44.9 Chronic obstructive pulmonary disease, unspecified; R00.0 Tachycardia, unspecified; R09.02 Hypoxemia; E11.22 Type 2 diabetes mellitus with diabetic chronic kidney disease; I12.9 Hypertensive chronic kidney disease with stage 1 through stage 4 chronic kidney disease, or unspecified chronic kidney disease; E78.00 Pure hypercholesterolemia, unspecified; N18.4 Chronic kidney disease, stage 4 (severe); E87.6 Hypokalemia; D72.829 Elevated white blood cell count, unspecified; E83.42 Hypomagnesemia; E66.01 Morbid (severe) obesity due to excess calories; Z68.43 Body mass index [BMI] 50.0-59.9, adult; Z88.8 Allergy status to other drugs, medicaments and biological substances; Z79.82 Long term (current) use of aspirin; Z79.899 Other long term (current) drug therapy; Z20.822 Contact with and (suspected) exposure to COVID-19
CPT/HCPCS: 0240U; 36415; 71046; 71250; 80048; 80053; 81001; 82947; 83605; 83735; 84484; 85025; 85379; 85730; 87040; 93005; A9270; J1644; J1815; J2060; J2270; J2405; J2543; J3475; J3490; J7030; 96365; 96366; 96368; 96375; 99285-25

== ENCOUNTER 2022-07-07 10:33 | Inpatient (IN) | payer MEDICARE, BC ==
[2022-07-07 11:22] LABS: POTASSIUM,K 3.9 mmol/L (3.5-5.1)
[2022-07-07 11:48] LABS: CORONAVIRUS COVID-19 NAA NEGATIVE (NEGATIVE); INFLUENZA A NAA NEGATIVE (NEGATIVE); INFLUENZA B NAA NEGATIVE (NEGATIVE); RESPIRATORY SYNCYTIAL VIR NAA NEGATIVE (NEGATIVE)
[2022-07-07] MEDS ORDERED: Furosemide 40 MG/4 ML VIAL IVPUSH ONE (12:53)
[2022-07-07] MEDS ORDERED: Furosemide 20 MG/2 ML VIAL IVPUSH ONE (13:04)
[2022-07-07] MEDS ORDERED: Nitroglycerin 2% Oint 1 GM UD Packet TOP ONE (16:33)
[2022-07-07] MEDS ORDERED: Aspirin 325 MG Tab PO ONE (16:33)
[2022-07-07] MEDS ORDERED: Albuterol/Ipratropium 3.0-0.5 MG/3 ML Neb Soln NEB PRN (17:56)
[2022-07-07] MEDS ORDERED: Polyethylene Glycol 3350 Powder 17 GM Packet PO PRN (17:56)
[2022-07-07] MEDS ORDERED: Acetaminophen 325 MG Tab PO PRN (17:56)
[2022-07-07] MEDS ORDERED: Sodium Chloride 0.9% 10 ML Syringe FLUSH PRN (17:56)
[2022-07-07] MEDS ORDERED: Ondansetron 4 MG/2 ML SDV IVPUSH PRN (17:56)
[2022-07-07] MEDS ORDERED: Sodium Chloride 0.9% 2.5 ML Syringe FLUSH PRN (17:56)
[2022-07-07] MEDS ORDERED: 50% Dextrose in Water 50 ML Syringe IVPUSH PRN (18:30)
[2022-07-07] MEDS ORDERED: Glucagon,Human Recombinant 1 MG Vial IM PRN (18:30)
[2022-07-07] MEDS: Insulin Aspart 100 Units/ML 3 ML Pen SUBCUT SCH (18:57)
[2022-07-07] MEDS: predniSONE 20 MG Tab PO SCH (20:00)
[2022-07-07] MEDS: Rosuvastatin 10 MG Tab PO SCH (20:47)
[2022-07-07] MEDS: Budesonide/Formoterol 160-4.5 MCG/Puff 6 GM Inhaler INH SCH (20:47)
[2022-07-07] MEDS ORDERED: Rosuvastatin 10 MG Tab PO SCH (21:00)
[2022-07-08 02:41] LABS: CARBON DIOXIDE,CO2 28.5 mmol/L (21.0-32.0); POTASSIUM,K 4.2 mmol/L (3.5-5.1)
[2022-07-08] MEDS: Omeprazole 20 MG Cap.CR PO SCH ×2 (06:28→07:56)
[2022-07-08] MEDS: Aspirin 81 MG Tab.Chew PO SCH (08:10)
[2022-07-08] MEDS: Escitalopram 10 MG Tab PO SCH (08:10)
[2022-07-08] MEDS: Insulin Aspart 100 Units/ML 3 ML Pen SUBCUT SCH ×3 (08:11→17:03)
[2022-07-08] MEDS: Insulin Detemir 100 Units/ML 3 ML Pen SUBCUT SCH (08:12)
[2022-07-08] MEDS: Budesonide/Formoterol 160-4.5 MCG/Puff 6 GM Inhaler INH SCH ×2 (09:37→20:57)
[2022-07-08] MEDS: predniSONE 20 MG Tab PO SCH (09:41)
[2022-07-08] MEDS ORDERED: Sodium Chloride 0.9% 500 ML IV SCH ×2 (09:45→09:56)
[2022-07-08] MEDS: Rosuvastatin 10 MG Tab PO SCH (20:57)
[2022-07-09 06:15] LABS: CARBON DIOXIDE,CO2 25.3 mmol/L (21.0-32.0); POTASSIUM,K 3.9 mmol/L (3.5-5.1)
[2022-07-09] MEDS: Omeprazole 20 MG Cap.CR PO SCH (06:31)
[2022-07-09] MEDS: Insulin Aspart 100 Units/ML 3 ML Pen SUBCUT SCH ×2 (08:12→11:40)
[2022-07-09] MEDS: Aspirin 81 MG Tab.Chew PO SCH (09:03)
[2022-07-09] MEDS: Escitalopram 10 MG Tab PO SCH (09:04)
[2022-07-09] MEDS: predniSONE 20 MG Tab PO SCH (09:04)
[2022-07-09] MEDS: Insulin Detemir 100 Units/ML 3 ML Pen SUBCUT SCH (09:07)
[2022-07-09] MEDS: Budesonide/Formoterol 160-4.5 MCG/Puff 6 GM Inhaler INH SCH (09:12)
[2022-07-09 11:48] VITALS: BP 113/54; PULSE 68
== END 2022-07-09 12:40 | disposition home or self-care (01) | DRG 314 ==
LOC: MW.ED 10:33 → MW.MS 16:38
PROVIDERS: ADMIT Internal Medicine; ATTEND Internal Medicine
DX: I11.0 Hypertensive heart disease with heart failure (principal); I31.9 Disease of pericardium, unspecified; I50.33 Acute on chronic diastolic (congestive) heart failure; I13.0 Hypertensive heart and chronic kidney disease with heart failure and stage 1 through stage 4 chronic kidney disease, or unspecified chronic kidney disease; E11.9 Type 2 diabetes mellitus without complications; N17.9 Acute kidney failure, unspecified; I45.10 Unspecified right bundle-branch block; N18.4 Chronic kidney disease, stage 4 (severe); E11.69 Type 2 diabetes mellitus with other specified complication; E66.01 Morbid (severe) obesity due to excess calories; I50.9 Heart failure, unspecified; J44.9 Chronic obstructive pulmonary disease, unspecified; E11.22 Type 2 diabetes mellitus with diabetic chronic kidney disease; E78.00 Pure hypercholesterolemia, unspecified; G47.30 Sleep apnea, unspecified; Z20.822 Contact with and (suspected) exposure to COVID-19; Z79.82 Long term (current) use of aspirin; Z79.4 Long term (current) use of insulin; Z86.16 Personal history of COVID-19; Z79.899 Other long term (current) drug therapy; Z79.84 Long term (current) use of oral hypoglycemic drugs
CPT/HCPCS: 0241U; 36415; 71045; 80053; 81003; 82947; 83735; 83880; 84100; 84484; 85025; 85652; 86140; 93306; 93005; 96374; 99285; 99285-25; A9270-GY; J1815-GY; J1940; J7040

== ENCOUNTER 2024-04-12 20:42 | Emergency (ER) | payer MEDICARE, BC ==
[2024-04-12 21:43] LABS: CORONAVIRUS COVID-19 NAA NEGATIVE (NEGATIVE); INFLUENZA A NAA NEGATIVE (NEGATIVE); INFLUENZA B NAA NEGATIVE (NEGATIVE)
[2024-04-12] MEDS: Amoxicillin/Clavulanate K 875-125 MG Tab PO ONE (22:08)
[2024-04-12] MEDS: Azithromycin 250 MG Tab PO ONE (22:10)
[2024-04-12 22:14] VITALS: BP 142/60; PULSE 83
== END 2024-04-12 22:14 | disposition home or self-care (01) ==
LOC: MW.ED 20:42
DX: J18.9 Pneumonia, unspecified organism (principal); J01.90 Acute sinusitis, unspecified; I10 Essential (primary) hypertension; E78.00 Pure hypercholesterolemia, unspecified; J44.9 Chronic obstructive pulmonary disease, unspecified; E11.9 Type 2 diabetes mellitus without complications; Z90.49 Acquired absence of other specified parts of digestive tract; Z88.8 Allergy status to other drugs, medicaments and biological substances; Z79.82 Long term (current) use of aspirin; Z79.4 Long term (current) use of insulin; Z79.2 Long term (current) use of antibiotics; Z79.899 Other long term (current) drug therapy
CPT/HCPCS: 0240U; 71046; 93005; 99285; A9270

== ENCOUNTER 2024-04-16 16:47 | Inpatient (IN) | payer MEDICARE, BC ==
[2024-04-16 17:44] LABS: BASOPHILS ABSOLUTE AUTO 0.03 K/uL (0.00-0.20); BASOPHILS PERCENT AUTO 0.2 % (0.0-1.0); EOSINOPHILS ABSOLUTE AUTO 0.22 K/uL (0.00-0.45); EOSINOPHILS PERCENT AUTO 1.5 % (0.0-6.0); HEMATOCRIT 36.7 % (37.0-47.0); HEMOGLOBIN 11.4 g/dL (12.0-16.0); IMMATURE GRAN PERCENT AUTO 0.7 % (0.0-0.4); LYMPHOCYTES ABSOLUTE AUTO 1.53 K/uL (1.00-4.80); LYMPHOCYTES PERCENT AUTO 10.7 % (24.0-44.0); MEAN CORPUSCULAR HEMOGLOBIN 26.6 pg (28.0-32.0); MEAN CORPUSCULAR HGB CONC 31.1 g/dL (32.0-36.0); MEAN CORPUSCULAR VOLUME 85.5 fL (83.0-99.0); MEAN PLATELET VOLUME 9.1 fL (9.4-12.3); NEUTROPHILS ABSOLUTE AUTO 11.39 K/uL (1.80-7.70); NEUTROPHILS PERCENT AUTO 79.9 % (41.0-71.0); PLATELET COUNT,PLT 283 K/uL (150-400); RED BLOOD CELL COUNT 4.29 M/uL (4.10-5.30); WHITE BLOOD CELL COUNT,WBC 14.27 K/uL (3.9-11.3)
[2024-04-16 18:19] LABS: BASE EXCESS VENOUS 1.2 (-2.0-3.0); BICARBONATE,VENOUS 26 mEQ/mL (22-28); PCO2 VENOUS 43 mmHG (41-51)
[2024-04-16 18:22] LABS: PO2 VENOUS < 30 mmHG (35-45)
[2024-04-16 18:23] LABS: A/G RATIO 0.6 (0.9-1.6); ALBUMIN 2.7 g/dL (3.4-5.0); BILIRUBIN TOTAL 0.3 mg/dL (0.2-1.0); CALCIUM 9.1 mg/dL (8.5-10.1); CARBON DIOXIDE,CO2 28.6 mmol/L (21.0-32.0); CREATININE 2.6 mg/dL (0.6-1.0); EST CRCL DRUG DOSING (CG) 16.15 mL/min; POTASSIUM,K 3.3 mmol/L (3.5-5.1); PROTEIN TOTAL,TP 7.2 g/dL (6.4-8.2)
[2024-04-16] MEDS: Levofloxacin/Dextrose 5%-Water 750 MG in Premix Bag 1 BAG IV STA (19:08)
[2024-04-16] MEDS: Albuterol/Ipratropium 3.0-0.5 MG/3 ML Neb Soln NEB STA (19:09)
[2024-04-16] MEDS: Sodium Chloride 0.9% 1,000 ML IV STA (19:09)
[2024-04-16 19:35] LABS: LACTIC ACID 0.8 mmol/L (0.4-2.0)
[2024-04-16] MEDS ORDERED: Glucagon,Human Recombinant 1 MG Vial IM PRN (23:17)
[2024-04-16] MEDS ORDERED: 50% Dextrose in Water 50 ML Syringe IVPUSH PRN (23:17)
[2024-04-16] MEDS: Insulin Glargine,Hum.Rec.Anlog 100 UNIT/ML 3 ML Pen SUBCUT SCH (23:48)
[2024-04-17 02:26] LABS: APPEARANCE,URINE CLEAR; BILIRUBIN,URINE NEGATIVE (NEGATIVE); COLOR,URINE YELLOW; GLUCOSE,URINE NEGATIVE (NEGATIVE); KETONES,URINE NEGATIVE (NEGATIVE); LEUKOCYTE ESTERASE,URINE NEGATIVE (NEGATIVE); NITRITE,URINE NEGATIVE (NEGATIVE); OCCULT BLOOD,URINE SMALL (NEGATIVE); PH,URINE 5.5 (5.0-8.0); PROTEIN,URINE TRACE mg/dL (NEGATIVE); UROBILINOGEN,URINE 0.2 EU/dL (<2.0)
[2024-04-17 02:27] LABS: WBC,URINE 0-1 (0-5/HPF)
[2024-04-17 02:28] LABS: BACTERIA,URINE FEW (NEGATIVE); MUCUS,URINE NOT SEEN (NONE-MOD); SQUAMOUS EPITHELIAL CELLS,UR OCCASIONAL
[2024-04-17 06:20] LABS: BASOPHILS ABSOLUTE AUTO 0.04 K/uL (0.00-0.20); BASOPHILS PERCENT AUTO 0.3 % (0.0-1.0); EOSINOPHILS ABSOLUTE AUTO 0.23 K/uL (0.00-0.45); EOSINOPHILS PERCENT AUTO 1.5 % (0.0-6.0); HEMATOCRIT 35.5 % (37.0-47.0); HEMOGLOBIN 10.8 g/dL (12.0-16.0); IMMATURE GRAN ABSOLUTE AUTO 0.14 K/uL (0.00-0.05); IMMATURE GRAN PERCENT AUTO 0.9 % (0.0-0.4); LYMPHOCYTES ABSOLUTE AUTO 2.27 K/uL (1.00-4.80); LYMPHOCYTES PERCENT AUTO 14.9 % (24.0-44.0); MEAN CORPUSCULAR HEMOGLOBIN 26.3 pg (28.0-32.0); MEAN CORPUSCULAR HGB CONC 30.4 g/dL (32.0-36.0); MEAN CORPUSCULAR VOLUME 86.6 fL (83.0-99.0); MEAN PLATELET VOLUME 9.4 fL (9.4-12.3); MONOCYTES ABSOLUTE AUTO 1.32 K/uL (0.00-0.80); MONOCYTES PERCENT AUTO 8.6 % (0.0-8.0); NEUTROPHILS ABSOLUTE AUTO 11.28 K/uL (1.80-7.70); NEUTROPHILS PERCENT AUTO 73.8 % (41.0-71.0); PLATELET COUNT,PLT 277 K/uL (150-400); WHITE BLOOD CELL COUNT,WBC 15.28 K/uL (3.9-11.3)
[2024-04-17 06:41] LABS: CALCIUM 9.2 mg/dL (8.5-10.1); CREATININE 2.5 mg/dL (0.6-1.0); EST CRCL DRUG DOSING (CG) 16.8 mL/min; POTASSIUM,K 3.8 mmol/L (3.5-5.1)
[2024-04-17] MEDS ORDERED: Polyethylene Glycol 3350 Powder 17 GM Packet PO PRN (08:05)
[2024-04-17] MEDS ORDERED: Docusate Sodium 100 MG Cap PO PRN (08:05)
[2024-04-17] MEDS ORDERED: Ondansetron 4 MG Tab.DIS PO PRN (08:05)
[2024-04-17] MEDS ORDERED: Melatonin 3 MG Tab PO PRN (08:05)
[2024-04-17] MEDS ORDERED: Acetaminophen 325 MG Tab PO PRN (08:05)
[2024-04-17] MEDS: Insulin Aspart 100 Units/ML 3 ML Pen SUBCUT SCH ×2 (08:36→08:45)
[2024-04-17] MEDS: Escitalopram 10 MG Tab PO SCH (08:38)
[2024-04-17] MEDS: Heparin Sodium 5,000 Units/ML Vial SUBCUT SCH (08:40)
[2024-04-17] MEDS: Formoterol/Mometasone 200-5 MCG 8.8 GM Inhaler INH SCH (08:42)
[2024-04-17] MEDS: hydrOXYzine HCl 25 MG Tab PO PRN (17:25)
[2024-04-17] MEDS ORDERED: Levofloxacin/Dextrose 5%-Water 750 MG in Premix Bag 1 BAG IV SCH (18:00)
[2024-04-17 18:33] VITALS: BP 146/63; PULSE 88
[2024-04-17] MEDS ORDERED: Rosuvastatin 10 MG Tab PO SCH (21:00)
[2024-04-18 05:07] LABS: BORDETELLA PARAPERT IS1001 Not Detected (Not Detected)
[2024-04-18] MEDS ORDERED: Pantoprazole 40 MG Tab.CR PO SCH (07:30)
[2024-04-18] MEDS ORDERED: Levofloxacin/Dextrose 5%-Water 500 MG in Premix Bag 1 BAG IV SCH ×2 (09:00→19:00)
== END 2024-04-17 18:43 | disposition home or self-care (01) | DRG 194 ==
LOC: MW.ED 16:47 → MW.MS 20:59
PROVIDERS: ADMIT Internal Medicine; ATTEND Internal Medicine
DX: J18.9 Pneumonia, unspecified organism (principal); J44.0 Chronic obstructive pulmonary disease with (acute) lower respiratory infection; N18.4 Chronic kidney disease, stage 4 (severe); R79.89 Other specified abnormal findings of blood chemistry; J44.9 Chronic obstructive pulmonary disease, unspecified; Z68.43 Body mass index [BMI] 50.0-59.9, adult; I12.9 Hypertensive chronic kidney disease with stage 1 through stage 4 chronic kidney disease, or unspecified chronic kidney disease; E11.22 Type 2 diabetes mellitus with diabetic chronic kidney disease; Z75.8 Other problems related to medical facilities and other health care; E78.00 Pure hypercholesterolemia, unspecified; K59.00 Constipation, unspecified; Z79.51 Long term (current) use of inhaled steroids; E66.9 Obesity, unspecified; F41.9 Anxiety disorder, unspecified; G47.00 Insomnia, unspecified; H54.7 Unspecified visual loss; Z88.8 Allergy status to other drugs, medicaments and biological substances; Z79.4 Long term (current) use of insulin; Z79.82 Long term (current) use of aspirin; Z90.49 Acquired absence of other specified parts of digestive tract; Z79.899 Other long term (current) drug therapy
CPT/HCPCS: 36415; 71046; 80053; 82803; 83605; 83880; 84484; 85025; 87040 ×2; 93005; 96365; 99285; J1956; J7030; 80048; 81001; 82947; 87428-QW; 87486; 87581; 87633; A9270-GY; J1644; J1815-GY; J7620-GY